=== PATIENT | female | born 1955 | race African-American/Black ===

== ENCOUNTER 2017-05-26 13:59 | Emergency (ER) | payer OTHER ==
[2017-05-26 15:15] LABS: BASOPHILS % (AUTO) 0.9 %; EOSINOPHILS # (AUTO) 0.1 10^3/uL (0.0-0.7); EOSINOPHILS % (AUTO) 3.4 %; HCT - HEMATOCRIT 31.1 % (37.0-47.0); HGB - HEMOGLOBIN 10.2 g/dL (12.0-16.0); LYMPHOCYTES # (AUTO) 0.4 10^3/uL (1.5-3.5); LYMPHOCYTES % (AUTO) 13.1 %; MEAN CORPUSCULAR HEMOGLOBIN 30.9 pg (27.0-31.0); MEAN CORPUSCULAR HGB CONC 32.7 g/dL (32.0-36.0); MEAN CORPUSCULAR VOLUME 94.6 fL (81.0-99.0); MEAN PLATELET VOLUME 10.7 fL (7.9-10.8); MONOCYTES # (AUTO) 0.3 10^3/uL (0.0-1.0); MONOCYTES % (AUTO) 10.1 %; NEUTROPHILS # (AUTO) 2.5 10^3/uL (1.5-6.6); NEUTROPHILS % (AUTO) 72.5 %; RED BLOOD COUNT 3.29 10^6/uL (4.20-5.40); RED CELL DISTRIBUTION WIDTH 18.6 % (12.0-15.0); UNCORRECTED WHITE BLOOD COUNT 3.4 x10^3/uL; WHITE BLOOD COUNT 3.4 x10^3/uL (4.8-10.8)
--- NOTE | 2017-05-26 15:20 | ED Physician Documentation ---
PD HPI DYSPNEA - Stated complaint Stated Complaint: DIFF BREATHING - Chief complaint Chief Complaint: Resp - History obtained from History obtained from: Patient, Family - History of Present Illness Timing - onset: How many days ago (several) Timing - duration: Days (several) Timing - details: Gradual onset Pain level max: 0 Pain level now: 0 Inciting event(s): URI Improved by: Rest Worsened by: Exertion Associated symptoms: Cough, Bilateral edema. No: Fever, Hemoptysis, Wheezing, Chest pain / discomfort, Palpitations, Diaphoresis, Unilateral edema Similar symptoms before: Diagnosis (CHF) Recently seen: Not recently seen Review of Systems Ten Systems: 10 systems reviewed and negative Constitutional: denies: Fever, Chills Nose: denies: Rhinorrhea / runny nose, Congestion Respiratory: reports: Cough GI: denies: Nausea, Vomiting, Diarrhea : denies: Dysuria Skin: denies: Rash Musculoskeletal: denies: Neck pain, Back pain Neurologic: denies: Headache PD PAST MEDICAL HISTORY - Past Medical History Past Medical History: Yes Cardiovascular: Congestive heart failure, Hypertension : Other (CKD, not on HD) - Present Medications Home Medications: Ambulatory Orders Medication Instructions Recorded Confirmed Acetaminophen 2 tab PO PRN PRN 05/26/17 05/26/17 Acetaminophen [Tylenol] 1 supp [place] PRN PRN 05/26/17 Albuterol 1 neb INH PRN PRN 05/26/17 05/26/17 Allopurinol 300 mg PO DAILY 05/26/17 05/26/17 Ascorbic Acid [Vitamin C] 500 mg PO DAILY 05/26/17 05/26/17 Azithromycin [Zithromax] 250 mg PO DAILY #4 tablet 05/26/17 Bumetanide [Bumex] 4 mg PO BID 05/26/17 05/26/17 Calcitriol [Rocaltrol] 1 cap PO DAILY 05/26/17 05/26/17 Calcium Carbonate [Tums (Calcium 1,000 mg PO PRN PRN 05/26/17 05/26/17 Carbonate 500mg)] Carvedilol 12.5 mg PO BID 05/26/17 05/26/17 Cholecalciferol (Vitamin D3) 1 cap PO DAILY 05/26/17 05/26/17 [Vitamin D3] Diclofenac Sodium [Voltaren] 1 applic TOP TID 05/26/17 05/26/17 FLUoxetine [PROzac] 20 mg PO DAILY 05/26/17 05/26/17 Ferrous Sulfate 325 mg PO DAILY PM 05/26/17 05/26/17 Fluticasone [Flonase] 1 sprays MARIELLE DAILY 05/26/17 05/26/17 Furosemide [Lasix] 40 mg PO DAILY #5 tablet 05/26/17 Glucagon,Human Recombinant 1 mg IJ PRN PRN 05/26/17 05/26/17 [Glucagon Emergency Kit] Isosorbide Mononitrate [Isosorbide 30 mg PO DAILY 05/26/17 05/26/17 Mononitrate ER] Lisinopril 1 tab PO BID 05/26/17 05/26/17 Melatonin 3 mg PO PRN PRN 05/26/17 05/26/17 Phenytoin [Dilantin] 400 mg PO DAILY PM 05/26/17 05/26/17 Pnv No.95/Ferrous Fum/Folic AC 1 tab PO DAILY 05/26/17 05/26/17 [ Multivitamin Tablet] Polyethylene Glycol 3350 [Miralax] 17 gm PO DAILY PRN 05/26/17 05/26/17 Potassium Chloride [K-Dur] 60 mg PO BID 05/26/17 05/26/17 Senna [Senokot] 1 tab PO PRN PRN 05/26/17 05/26/17 Simethicone [Gas Relief] 1 tab PO PRN PRN 05/26/17 05/26/17 hydrALAZINE [Apresoline] 25 mg PO TID 05/26/17 05/26/17 tiZANidine [Zanaflex] 2 mg PO PRN PRN 05/26/17 05/26/17 - Allergies Allergies/Adverse Reactions: Allergies Allergy/AdvReac Type Severity Reaction Status Date / Time amiodarone Allergy Edema Verified 05/26/17 14:22 amlodipine Allergy Edema Verified 05/26/17 14:22 - Living Situation Living Situation: reports: With family Living Arrangement: reports: At home - Social History Does the pt smoke?: No Does the pt have substance abuse?: No - Family History Family history: reports: Non contributory PD ED PE NORMAL - Vitals Vital signs reviewed: Yes - General General: Alert and oriented X 3, No acute distress - HEENT HEENT: Moist mucous membranes - Neck Neck: Supple, no meningeal sign - Cardiac Cardiac: RRR - Respiratory Respiratory: No respiratory distress, Other (mild rhonchi B) - Abdomen Abdomen: Soft, Non tender, Non distended - Derm Derm: Warm and dry - Extremities Extremities: Other (2+ BLE edema) - Neuro Neuro: Alert and oriented X 3 - Psych Psych: Normal mood, Normal affect Results - Vitals Vitals: Vital Signs - 24 hr 05/26/17 05/26/17 05/26/17 14:15 16:20 17:19 Temperature 36.9 C Heart Rate 81 75 71 Respiratory 95 H 18 17 Rate Blood Pressure 150/92 H 110/79 135/97 H O2 Saturation 95 97 99 Oxygen O2 Source Room air - EKG (time done) 1438 Rate: Rate (enter#) (67) Rhythm: Atrial fibrillation, Paced [place]: Normal Ischemia: Non specific changes - Labs Labs: Laboratory Tests 05/26/17 05/26/17 05/26/17 15:06 15:06 15:06 WBC 3.4 L RBC 3.29 L Hgb 10.2 L Hct 31.1 L MCV 94.6 MCH 30.9 MCHC 32.7 RDW 18.6 H Plt Count 85 L MPV 10.7 Neut # 2.5 Lymph # 0.4 L [place] # 0.3 Eos # 0.1 Baso # 0.0 Absolute Nucleated RBC 0.00 Nucleated RBC % 0.0 Sodium 137 Potassium 3.9 Chloride 100 L Carbon Dioxide 23 Anion Gap 14.0 H BUN 97 H* Creatinine 4.2 H Estimated GFR (MDRD) 13 L Glucose 129 H Calcium 8.7 Total Bilirubin 1.5 H AST 15 ALT 13 Alkaline Phosphatase 126 H B-Natriuretic Peptide 1130 H Total Protein 7.5 Albumin 4.0 Globulin 3.5 Albumin/Globulin Ratio 1.1 Lipase 29 - Rads (name of study) cxr Radiology: Prelim report reviewed, EMP read contemporaneously, See rad report ( Right basilar infiltrate with possible consolidation and small effusion. Cardiovascular fullness. Cannot exclude an element of congestive failure. ) PD MEDICAL DECISION MAKING - ED course Complexity details: reviewed results, re-evaluated patient, considered differential, d/w patient ED course: Patient is a 62-year-old female who presents to the emergency department with what appears to be congestive heart failure and possible complicating pneumonia. No hypoxia. No fever. Given Lasix here and is diuresing well. Will place on Lasix at home. We will also place on azithromycin. She is very well-appearing, nontoxic. Family and patient are comfortable going home at this time and will return if she worsens. Patient and family counseled regarding signs and symptoms for which I believe and urgent re-evaluation would be necessary. Patient with good understanding of and agreement to plan and is comfortable going home at this time This document was made in part using voice recognition software. While efforts are made to proofread this document, sound alike and grammatical errors may occur. Departure - Departure Disposition: Home, Self Care Clinical Impression: CHF (congestive heart failure) Qualifiers: Congestive heart failure type: unspecified congestive heart failure type Congestive heart failure chronicity: acute on chronic Qualified Code(s): I50.9 - Heart failure, unspecified Pneumonia Qualifiers: Pneumonia type: due to unspecified organism Laterality: right Lung location: lower lobe of lung Qualified Code(s): J18.1 - Lobar pneumonia, unspecified organism Condition: Good Instructions: ED CHF General, ED Pneumonia Adult Follow-Up: Provider,Other [Primary Care Provider] - Within 1 week Prescriptions: Azithromycin [Zithromax] 250 mg PO DAILY #4 tablet Furosemide [Lasix] 40 mg PO DAILY #5 tablet Comments: You should start to feel better in the next 2-3 days. Return sooner if you fail to improve or worsen. Discharge Date/Time: 05/26/17 17:45
[2017-05-26 15:34] LABS: ALBUMIN/GLOBULIN RATIO 1.1 (1.0-2.2); BILIRUBIN,TOTAL 1.5 mg/dL (0.2-1.0); CALCIUM 8.7 mg/dL (8.5-10.3); CREATININE 4.2 mg/dL (0.4-1.0); POTASSIUM 3.9 mmol/L (3.5-5.0); TOTAL PROTEIN 7.5 g/dL (6.7-8.2)
--- NOTE | 2017-05-26 15:41 | XRAY Preliminary Report ---
Exam: XR CHEST 2 VIEW PA/LAT IMPRESSION: 1. Right basilar infiltrate with possible consolidation and small effusion. 2. Cardiovascular fullness. Cannot exclude an element of congestive failure. [facility] SITE ID: [id number]
--- NOTE | 2017-05-26 15:43 | XRAY Report ---
EXAM: CHEST RADIOGRAPHY EXAM DATE: 05/26/2017 03:34 PM. CLINICAL HISTORY: Cough. COMPARISON: None. TECHNIQUE: 2 views. FINDINGS: Lungs/Pleura: Prominent infiltration in right lung base with possible consolidation. Small right effu maeve. Otherwise clear. No pneumothorax. Mediastinum: Moderate to marked cardiomegaly. Mild diffuse vascular fullness. Other: Permanent pacemaker on the left with intact leads. Status post median sternotomy. Degenerative changes. IMPRESSION: 1. Right basilar infiltrate with possible consolidation and small effusion. 2. Cardiovascular fullness. Cannot exclude an element of congestive failure. [facility] Referring Provider Line: [phone] SITE ID: [id number]
[2017-05-26] MEDS ORDERED: FUROSEMIDE 40 MG/4 ML VIAL IVP STA (15:46)
[2017-05-26] MEDS ORDERED: FUROSEMIDE 40 MG/4 ML VIAL ONE (16:23)
[2017-05-26] MEDS ORDERED: AZITHROMYCIN 250 MG TABLET PO STA (17:17)
[2017-05-26 17:20] VITALS: BP 135/97
[2017-05-26] MEDS ORDERED: AZITHROMYCIN 250 MG TABLET PO ONE (17:46)
== END 2017-05-26 17:45 | disposition home or self-care (01) ==
LOC: ED 13:59
DX: I13.0 Hypertensive heart and chronic kidney disease with heart failure and stage 1 through stage 4 chronic kidney disease, or unspecified chronic kidney disease (principal); N18.9 Chronic kidney disease, unspecified; I50.9 Heart failure, unspecified; J18.9 Pneumonia, unspecified organism; I48.91 Unspecified atrial fibrillation
CPT/HCPCS: 36415; 71020; 80053; 83690; 83880; 85025; 93005; 96374; 99283; 99284; A9270

== ENCOUNTER 2017-05-29 00:24 | Inpatient (IN) | payer OTHER ==
[2017-05-29 01:04] LABS: BASOPHILS % (AUTO) 0.8 %; EOSINOPHILS # (AUTO) 0.1 10^3/uL (0.0-0.7); EOSINOPHILS % (AUTO) 3.7 %; HCT - HEMATOCRIT 29.8 % (37.0-47.0); HGB - HEMOGLOBIN 9.8 g/dL (12.0-16.0); LYMPHOCYTES # (AUTO) 0.6 10^3/uL (1.5-3.5); MEAN CORPUSCULAR HEMOGLOBIN 30.9 pg (27.0-31.0); MEAN CORPUSCULAR HGB CONC 32.9 g/dL (32.0-36.0); MEAN CORPUSCULAR VOLUME 93.8 fL (81.0-99.0); MEAN PLATELET VOLUME 11.2 fL (7.9-10.8); MONOCYTES # (AUTO) 0.4 10^3/uL (0.0-1.0); MONOCYTES % (AUTO) 11.5 %; NEUTROPHILS # (AUTO) 2.4 10^3/uL (1.5-6.6); NUCLEATED RED BLOOD CELLS AUTO 0.1 /100WBC; RED BLOOD COUNT 3.18 10^6/uL (4.20-5.40); RED CELL DISTRIBUTION WIDTH 19.5 % (12.0-15.0); UNCORRECTED WHITE BLOOD COUNT 3.6 x10^3/uL; WHITE BLOOD COUNT 3.6 x10^3/uL (4.8-10.8)
[2017-05-29 01:32] LABS: INR 1.2 (0.8-1.2); PT - PROTHROMBIN TIME 13.7 secs (9.9-12.6)
[2017-05-29 01:40] LABS: ALBUMIN/GLOBULIN RATIO 1.1 (1.0-2.2); BILIRUBIN,TOTAL 1.3 mg/dL (0.2-1.0); CREATININE 4.4 mg/dL (0.4-1.0); POTASSIUM 4.6 mmol/L (3.5-5.0); TOTAL PROTEIN 7.5 g/dL (6.7-8.2)
[2017-05-29] MEDS ORDERED: BUMETANIDE 1 MG/4 ML VIAL IVP STA (02:15)
--- NOTE | 2017-05-29 02:23 | XRAY Preliminary Report ---
Exam: XR CHEST 2 VIEW PA/LAT IMPRESSION: 1. Stable abnormal appearance of the chest. 2. There is a background of mild CHF. 3. Medium-sized right basilar airspace disease as well as medium size right-sided pleural effusion. [facility] SITE ID: [id number]
--- NOTE | 2017-05-29 02:45 | XRAY Report ---
EXAM: CHEST RADIOGRAPHY EXAM DATE: 05/29/2017 02:00 AM. CLINICAL HISTORY: Shortness of breath, pneumonia. COMPARISON: 05/26/2017. TECHNIQUE: 2 views. FINDINGS: Lungs/Pleura: There is medium-sized right basilar consolidation. Medium-sized right-sided pleural eff usion. Accounting for differences in technique, no significant change from the prior exam. Mediastinum: Moderate enlargement of the cardiac silhouette and pulmonary vascular congestion. Other: Prior median sternotomy. Left subclavian pacemaker device tips at the right atrium and right v entricle apex. IMPRESSION: 1. Stable abnormal appearance of the chest. 2. There is a background of mild CHF. 3. Medium-sized right basilar airspace disease as well as medium size right-sided pleural effusion. [facility] Referring Provider Line: [phone] SITE ID: [id number]
--- NOTE | 2017-05-29 02:48 | ED Physician Documentation ---
PD HPI DYSPNEA - Stated complaint Stated Complaint: SHORTNESS OF BREATH - Chief complaint Chief Complaint: Ext Problem - History obtained from History obtained from: Patient, Family, EMS - History of Present Illness Timing - onset: How many days ago (5) Timing - details: Gradual onset, Still present Improved by: O2, Lasix, Sitting up Worsened by: Exertion, Laying flat Associated symptoms: Cough, Wheezing, Bilateral edema Similar symptoms before: Work up / diagnostics, Treatment, Follow up Recently seen: Emergency Dept - Additional information Additional information: Patient is a 62 year old female with a history of diabetes, htn, ckd who is presenting to the emergency department for shortness of breath. patient was seen in the emergency department 3 days prior. At that time she was started on antibiotics and lasix. Patient states that she felt ok at discharge but has become progressively worse so she came back for further care. Review of Systems Constitutional: reports: Myalgias. denies: Fever, Chills Eyes: denies: Decreased vision, Photophobia Ears: denies: Ear pain, Drainage/discharge Nose: reports: Congestion Throat: denies: Sore throat Cardiac: reports: Pedal edema Respiratory: reports: Dyspnea, Cough, Wheezing GI: denies: Nausea, Vomiting : reports: Frequency Skin: reports: Lesions Musculoskeletal: reports: Extremity pain, Extremity swelling, Joint swelling Neurologic: reports: Generalized weakness. 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 : Other - Past Surgical History Past Surgical History: Yes /PROCESS CONTROL OPERATOR: Other Cardiovascular: Valve replacement Neuro: Other - Present Medications Home Medications: Ambulatory Orders Medication Instructions Recorded Confirmed Acetaminophen 2 tab PO PRN PRN 05/26/17 05/26/17 Acetaminophen [Tylenol] 1 supp [place] PRN PRN 05/26/17 Albuterol 1 neb INH PRN PRN 05/26/17 05/26/17 Allopurinol 300 mg PO DAILY 05/26/17 05/26/17 Ascorbic Acid [Vitamin C] 500 mg PO DAILY 05/26/17 05/26/17 Azithromycin [Zithromax] 250 mg PO DAILY #4 tablet 05/26/17 Bumetanide [Bumex] 4 mg PO BID 05/26/17 05/26/17 Calcitriol [Rocaltrol] 1 cap PO DAILY 05/26/17 05/26/17 Calcium Carbonate [Tums (Calcium 1,000 mg PO PRN PRN 05/26/17 05/26/17 Carbonate 500mg)] Carvedilol 12.5 mg PO BID 05/26/17 05/26/17 Cholecalciferol (Vitamin D3) 1 cap PO DAILY 05/26/17 05/26/17 [Vitamin D3] Diclofenac Sodium [Voltaren] 1 applic TOP TID 05/26/17 05/26/17 FLUoxetine [PROzac] 20 mg PO DAILY 05/26/17 05/26/17 Ferrous Sulfate 325 mg PO DAILY PM 05/26/17 05/26/17 Fluticasone [Flonase] 1 sprays MARIELLE DAILY 05/26/17 05/26/17 Furosemide [Lasix] 40 mg PO DAILY #5 tablet 05/26/17 Glucagon,Human Recombinant 1 mg IJ PRN PRN 05/26/17 05/26/17 [Glucagon Emergency Kit] Isosorbide Mononitrate [Isosorbide 30 mg PO DAILY 05/26/17 05/26/17 Mononitrate ER] Lisinopril 1 tab PO BID 05/26/17 05/26/17 Melatonin 3 mg PO PRN PRN 05/26/17 05/26/17 Phenytoin [Dilantin] 400 mg PO DAILY PM 05/26/17 05/26/17 Pnv No.95/Ferrous Fum/Folic AC 1 tab PO DAILY 05/26/17 05/26/17 [ Multivitamin Tablet] Polyethylene Glycol 3350 [Miralax] 17 gm PO DAILY PRN 05/26/17 05/26/17 Potassium Chloride [K-Dur] 60 mg PO BID 05/26/17 05/26/17 Senna [Senokot] 1 tab PO PRN PRN 05/26/17 05/26/17 Simethicone [Gas Relief] 1 tab PO PRN PRN 05/26/17 05/26/17 hydrALAZINE [Apresoline] 25 mg PO TID 05/26/17 05/26/17 tiZANidine [Zanaflex] 2 mg PO PRN PRN 05/26/17 05/26/17 - Allergies Allergies/Adverse Reactions: Allergies Allergy/AdvReac Type Severity Reaction Status Date / Time amiodarone Allergy Edema Verified 05/29/17 00:44 amlodipine Allergy Edema Verified 05/29/17 00:44 - Social History Does the pt smoke?: No Smoking Status: Never smoker Does the pt drink ETOH?: No Does the pt have substance abuse?: No - Immunizations Immunizations are current?: Yes - POLST Patient has POLST: No PD ED PE EXPANDED - General General: Alert, In distress, Other (anasarca) - HEENT HEENT: Dry mucous membranes - Neck Neck: JVD present - Cardiac Cardiac: Irregularly irregular - Respiratory Respiratory: Distress, Labored, Accessory mm use, Wheezing, Right upper lobe, Right middle lobe, Right lower lobe, Left upper lobe, Left lower lobe - Abdomen Abdomen: Other (pitting edema) - Derm Derm: Other (pitting edema with blisters) - Extremities Extremities: Pedal edema bilateral (+4 pitting edema diffusely) Results - Vitals Vitals: Vital Signs - 24 hr 05/29/17 05/29/17 05/29/17 00:30 02:08 02:46 Temperature 36.6 C 36.3 C L Heart Rate 85 80 75 Respiratory 24 20 18 Rate Blood Pressure 181/85 H 157/96 H 161/107 H O2 Saturation 100 100 100 Oxygen O2 Source Room air Oxygen Flow Rate 2 - EKG (time done) 0103 Rate: Rate (enter#) (81) Rhythm: Atrial fibrillation QRS: Low voltage Ischemia: T wave inversion Compare to prior EKG: Unchanged from prior EKG - Labs Labs: Laboratory Tests 05/29/17 05/29/17 05/29/17 00:57 00:57 00:57 WBC 3.6 L RBC 3.18 L Hgb 9.8 L Hct 29.8 L MCV 93.8 MCH 30.9 MCHC 32.9 RDW 19.5 H Plt Count 134 MPV 11.2 H Neut # 2.4 Lymph # 0.6 L [place] # 0.4 Eos # 0.1 Baso # 0.0 Absolute Nucleated RBC 0.00 Nucleated RBC % 0.1 PT INR Sodium 137 Potassium 4.6 Chloride 97 L Carbon Dioxide 25 Anion Gap 15.0 H BUN 89 H* Creatinine 4.4 H Estimated GFR (MDRD) 12 L Glucose 120 H Lactic Acid Calcium 9.0 Total Bilirubin 1.3 H AST 18 ALT 15 Alkaline Phosphatase 124 H Troponin I 0.04 B-Natriuretic Peptide Total Protein 7.5 Albumin 3.9 Globulin 3.6 Albumin/Globulin Ratio 1.1 Lipase 34 05/29/17 05/29/17 05/29/17 00:57 01:10 01:10 WBC RBC Hgb Hct MCV MCH MCHC RDW Plt Count MPV Neut # Lymph # [place] # Eos # Baso # Absolute Nucleated RBC Nucleated RBC % PT 13.7 H INR 1.2 Sodium Potassium Chloride Carbon Dioxide Anion Gap BUN Creatinine Estimated GFR (MDRD) Glucose Lactic Acid 0.8 Calcium Total Bilirubin AST ALT Alkaline Phosphatase Troponin I B-Natriuretic Peptide 1030 H Total Protein Albumin Globulin Albumin/Globulin Ratio Lipase - Rads (name of study) chest x-ray Radiology: Final report received (pulmonary vascular congestion) PD MEDICAL DECISION MAKING - ED course Complexity details: reviewed old records, reviewed results, re-evaluated patient , considered differential, d/w patient, d/w family, d/w home energy consultant ED course: Patient was seen and examined at bedside. Patient was placed on a monitor. ekg was performed. labs were drawn and chest x-ray was performed. Patient stated that lasix wasnt working and was treated with bumex. Patient's labs and ekg were consistent with heart failure. hospitalist was contacted and came and evaluated the patient. Patient was admitted under his service for further evaluation and care. Departure - Departure Disposition: [facility] DC/Xfer Clinical Impression: Renal failure CHF (congestive heart failure) Qualifiers: Congestive heart failure type: unspecified congestive heart failure type Condition: Stable Discharge Date/Time: 05/29/17 04:31
[2017-05-29] MEDS ORDERED: BUMETANIDE 1 MG/4 ML VIAL ONE (02:50)
[2017-05-29] MEDS ORDERED: CALCIUM CARBONATE CHEW 500 MG TABLET PO PRN (03:09)
[2017-05-29] MEDS ORDERED: SODIUM CHLORIDE FLUSH 0.9% 10 ML SYRINGE IVP PRN (03:15)
[2017-05-29] MEDS ORDERED: PROMETHAZINE 25 MG/1 ML VIAL IM PRN (03:21)
[2017-05-29] MEDS ORDERED: HYDROcod/ACETAM 5/325 MG TABLET PO PRN (03:21)
[2017-05-29] MEDS ORDERED: PROCHLORPERAZINE 10 MG/2 ML VIAL IVP PRN (03:21)
[2017-05-29] MEDS ORDERED: HYDROcod/ACETAM 10 MG/325 MG TABLET PO PRN (03:21)
[2017-05-29] MEDS ORDERED: ACETAMINOPHEN 325 MG TABLET PO PRN (03:21)
[2017-05-29] MEDS ORDERED: ZOLPIDEM 5 MG TABLET PO PRN (03:21)
[2017-05-29] MEDS ORDERED: ONDANSETRON 4 MG/2 ML VIAL IVP PRN (03:21)
--- NOTE | 2017-05-29 04:09 | HISTORY & PHYSICAL EXAMINATION ---
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 The patient states that all of her symptoms started about 2 weeks ago. She states that at that time she had a sore throat and was having cold-like symptoms. She states that she began having worsening lower extremity swelling which lasted for a couple of days and then symptoms began to improve. She states that symptoms then returned after a few days and then just over the last few days became significantly worse. She states that she had severe shortness of breath with just minimal exertion. She states that she has had severely increased swelling both in her lower extremities and up into her abdominal wall. The patient also states that she has been feeling weak overall. She admits to orthopnea she is unable to lie flat and has to sit up even to sleep. She denies any fevers or chills but does admit to cough. The patient states that she has gained about 40 pounds in the last 4 months. The patient did come into the emergency department 3 days ago and at that time was found to have a pneumonia and fluid overload thought to be secondary to her CKD and CHF. The patient was prescribed Lasix and azithromycin and discharged home. The patient had worsening of her symptoms over the course of the last 2 days and returned to the emergency department. The patient denies any headaches, blurred vision, runny nose, difficulty swallowing, nasal congestion, neck pain, chest pain, abdominal pain, nausea, vomiting, diarrhea, constipation, urinary urgency, urinary frequency, dysuria, muscle aches, changes in her appetite, or any new focal neurologic deficits. On presentation to the emergency department the patient was afebrile but she was quite tachypneic and did have some mild conversational dyspnea. The patient was also hypertensive but the remainder of her vital signs were normal and she was saturating well on room air. The patient underwent routine lab work which revealed a creatinine of 4.4 with a BUN of 89 this was improved from a day prior. The patient stated that she still is making urine. The patient's BNP was elevated at 1030 which is improved from 1130 just 3 days earlier. The patient's chest x-ray revealed mild CHF with medium-sized right basilar airspace disease and a medium size right pleural effusion. On exam the patient was very tachypneic had anasarca and significant crackles on examination. The patient was admitted for fluid overload secondary to CHF exacerbation and chronic kidney disease. History - Past Medical History Cardiovascular: reports: Congestive heart failure, Hypertension, Atrial fibrillation, Valve disorder (Mitral regurgitation status post repair) Respiratory: reports: Other Neuro: reports: CVA (Residual right-sided weakness), Peripheral neuropathy, Other (Cerebrospinal fluid leak) Endocrine/Autoimmune: reports: Type 2 diabetes, Other (Parathyroidectomy) GI: reports: None MANAGER PATIENT: reports: Other : reports: Renal insuffiency (CKD stage V), Other Psych: reports: Depression Musculoskeletal: reports: Osteoarthritis, Gout - Past Surgical History /MANAGER PATIENT: reports: Other Cardiovascular: reports: Valve replacement Neuro: reports: Craniotomy, Other - Family & Social History Family History: Mother: , CAD, Hypertension (Grandmother and grandfather both had hypertension), Father: , CAD, Hypertension, Other family: Diabetes, Type 2 (Grandmother with diabetes), Hypertension Living arrangement: At home Living Situation: With caregiver(s) Social History Notes: The patient was born in [place] but grew up in [place] [facility]. The patient had no biological children and has never been . She does have 2 adopted children who live on [facility]. The patient's DPOA is her aunt. She lives in [place] and had a job in [employer] from which she is retired. She has 2 LATCHER's who provide support in the home. The patient has never smoked, she does not drink alcohol and she denies any illicit drug use. - Substance History Use: Uses substance without health or social issues: NONE Abuse: Recurrent use of substance despite neg consequences: NONE Dependence: Experiences withdrawal or developed tolerances: NONE - POLST Patient has POLST: No POLST Status: Full Code Meds/Allgy - Home Medications Home Medications: Ambulatory Orders Medication Instructions Recorded Confirmed Acetaminophen 2 tab PO PRN PRN 05/26/17 05/26/17 Acetaminophen [Tylenol] 1 supp AK PRN PRN 05/26/17 Albuterol 1 neb INH PRN PRN 05/26/17 05/26/17 Allopurinol 300 mg PO DAILY 05/26/17 05/26/17 Ascorbic Acid [Vitamin C] 500 mg PO DAILY 05/26/17 05/26/17 Azithromycin [Zithromax] 250 mg PO DAILY #4 tablet 05/26/17 Bumetanide [Bumex] 4 mg PO BID 05/26/17 05/26/17 Calcitriol [Rocaltrol] 1 cap PO DAILY 05/26/17 05/26/17 Calcium Carbonate [Tums (Calcium 1,000 mg PO PRN PRN 05/26/17 05/26/17 Carbonate 500mg)] Carvedilol 12.5 mg PO BID 05/26/17 05/26/17 Cholecalciferol (Vitamin D3) 1 cap PO DAILY 05/26/17 05/26/17 [Vitamin D3] Diclofenac Sodium [Voltaren] 1 applic TOP TID 05/26/17 05/26/17 FLUoxetine [PROzac] 20 mg PO DAILY 05/26/17 05/26/17 Ferrous Sulfate 325 mg PO DAILY PM 05/26/17 05/26/17 Fluticasone [Flonase] 1 sprays MARIELLE DAILY 05/26/17 05/26/17 Furosemide [Lasix] 40 mg PO DAILY #5 tablet 05/26/17 Glucagon,Human Recombinant 1 mg IJ PRN PRN 05/26/17 05/26/17 [Glucagon Emergency Kit] Isosorbide Mononitrate [Isosorbide 30 mg PO DAILY 05/26/17 05/26/17 Mononitrate ER] Lisinopril 1 tab PO BID 05/26/17 05/26/17 Melatonin 3 mg PO PRN PRN 05/26/17 05/26/17 Phenytoin [Dilantin] 400 mg PO DAILY PM 05/26/17 05/26/17 Pnv No.95/Ferrous Fum/Folic AC 1 tab PO DAILY 05/26/17 05/26/17 [ Multivitamin Tablet] Polyethylene Glycol 3350 [Miralax] 17 gm PO DAILY PRN 05/26/17 05/26/17 Potassium Chloride [K-Dur] 60 mg PO BID 05/26/17 05/26/17 Senna [Senokot] 1 tab PO PRN PRN 05/26/17 05/26/17 Simethicone [Gas Relief] 1 tab PO PRN PRN 05/26/17 05/26/17 hydrALAZINE [Apresoline] 25 mg PO TID 05/26/17 05/26/17 tiZANidine [Zanaflex] 2 mg PO PRN PRN 05/26/17 05/26/17 - Allergies Allergies/Adverse Reactions: Allergies Allergy/AdvReac Type Severity Reaction Status Date / Time amiodarone Allergy Edema Verified 05/29/17 00:44 amlodipine Allergy Edema Verified 05/29/17 00:44 Review of Systems - Other Findings Other Findings: A comprehensive review of systems was performed the pertinent positives and negatives are stated above in the HPI and the remainder of the review of systems is negative. Exam - Vital Signs Reviewed Vital Signs: Yes - Physical Exam General Appearance: positive: Alert, Moderate distress (Patient is very tachypneic and short of breath. She is in some moderate respiratory distress.) , Other (Patient has anasarca) Eyes Bilateral: positive: Normal inspection, PERRL, EOMI, No lid inflammation, Conjunctivae nml, No scleral icterus ENT: positive: ENT inspection nml, Pharynx nml, No signs of dehydration. negative: Purulent nasal drainage, Pharyngeal erythema, Oral lesions Neck: positive: Nml inspection, Thyroid nml, Trachea midline, Other (Patient has elevated JVD). negative: Thyromegaly, Lymphadenopathy (R), Lymphadenopathy (L), Stiff neck, Brudzinski's sign, Carotid bruit, Tracheal deviation Respiratory: positive: Rales (Patient has crackles up two thirds of the lungs bilaterally. She is tachypneic and in respiratory distress) Cardiovascular: positive: No murmur, No gallop, Irregularly irregular Peripheral Pulses: positive: 2+ Abdomen: positive: Non-tender, Nml bowel sounds, Other (Patient has abdominal wall edema). negative: Guarding, Rebound, Hepatomegaly Back: positive: Nml inspection. negative: CVA tenderness (R), CVA tenderness (L ) Skin: positive: No rash, Dry, Other (Patient has blistering and skin breakdown in her bilateral lower extremities above the knees). negative: Cyanosis, Diaphoresis, Pallor Extremities: positive: Non-tender, Full ROM, Nml appearance, Pedal edema ( Bilateral 4+ pitting edema throughout the bilateral lower extremities and up into the abdominal wall. Patient has anasarca.) Neurologic/Psychiatric: positive: Oriented x3, CN's nml (2-12), Motor nml, Sensation nml, Mood/affect nml Conclusion/Plan - Problem List (1) Pulmonary edema Conclusion/Plan: Patient presented with increasing shortness of breath and was tachypneic and in respiratory distress on presentation. The patient also is having orthopnea with increasing edema. The patient has history of CKD stage V as well as CHF. It appears that the patient likely is having a combination of worsening CKD leading to fluid retention and CHF leading to pulmonary edema. The patient was treated in the emergency department 3 days earlier with Lasix and sent home with Lasix but has not had improvement in her symptoms in fact symptoms have worsened over the last 3 days. Plan: Patient will be treated with IV Lasix 100 mg 3 times daily given her CKD stage V she will require high doses of Lasix and we will hope that she is able to diurese appropriately. If patient does not have appropriate diuresis and kidney function continues to decline we will need to transfer the patient for nephrology consultation and urgent dialysis. 2 L fluid restriction Strict I's and O's Daily weights Solomon catheter Qualifiers: Chronicity: acute Qualified Code(s): J81.0 - Acute pulmonary edema (2) Anasarca Conclusion/Plan: The patient has severe anasarca with edema up both lower extremities that is 4+ . She also has abdominal wall edema and edema in her upper extremities. This anasarca is likely secondary to her CKD stage V. The patient has put on over 40 pounds in the last 4 months. This appears all to be from edema. Plan: We will attempt to diurese the patient with high doses of Lasix IV and hope she is able to make enough urine to decrease her anasarca and the discomfort that she is up 6. She is experiencing due to the anasarca. (3) CKD (chronic kidney disease) stage 5, GFR less than 15 ml/min Conclusion/Plan: The patient has CKD stage V and has been seen outpatient by her naval marine engineer Dr. Wild Justice at the [facility] in [place]. The patient has been prepped for dialysis and is supposed to get a fistula placed within the next few months. Over the last several months the patient has developed worsening anasarca and now has pulmonary edema. The patient otherwise does not have any indications for dialysis at this time as she has normal electrolytes and does not appear to be uremic. The patient continues to make good urine. Plan: We will attempt to diurese the patient with high doses of Lasix IV in hopes of improving her pulmonary edema and anasarca. If the patient's urine output declines or the patient's creatinine worsens or she has any electrolyte abnormalities the patient will need urgent transfer to a center with nephrology for dialysis. Patient also appears to have anemia of chronic disease secondary to her CKD We will monitor the patient's phosphorus and electrolytes We will avoid nephrotoxic agents (4) CHF (congestive heart failure) Conclusion/Plan: The patient states that she has a history of CHF however we do not have an echo in our system to confirm this. The patient does present with pulmonary edema and shortness of air with JVD and crackles on examination. Patient also has an elevated BNP. The patient appears to be in a CHF exacerbation however this may be in conjunction with fluid overload due to CKD stage V and poor diuresis. Plan: Echocardiogram IV Lasix 100 mg 3 times daily Potassium replacement Daily weights Strict I's and O's Fluid restriction of 2 L If patient has systolic dysfunction we will need to ensure that she is on optimal medications. Telemetry monitoring Qualifiers: Congestive heart failure type: unspecified congestive heart failure type (5) CAP (community acquired pneumonia) Conclusion/Plan: The patient has been having worsening shortness of air and has also been coughing. She does not have any fevers or chills. The patient's chest x-ray however does show a medium-sized right basilar airspace disease with a right sided pleural effusion. Although the patient's symptoms appear mainly to be due to her fluid overload I am still suspicious that she may have pneumonia given her comorbidities and therefore we will treat her for community-acquired pneumonia. Plan: Patient will be placed on ceftriaxone and azithromycin IV 7 days for treatment of pneumonia. Patient will be given supplemental oxygen as needed. Qualifiers: Laterality: right Lung location: lower lobe of lung Qualified Code(s): J18.1 - Lobar pneumonia, unspecified organism (6) Hypertension Conclusion/Plan: The patient has a history of hypertension. The patient's blood pressure is poorly controlled on presentation. Patient's blood pressure may be poorly controlled secondary to fluid overload due to CKD stage V and CHF. Plan: We will continue the patient's home antihypertensive medications for now We will give her IV Lasix which should help to improve her blood pressure. Qualifiers: Hypertension type: essential hypertension Qualified Code(s): I10 - Essential (primary) hypertension (7) Atrial fibrillation Conclusion/Plan: Patient has chronic atrial fibrillation and currently is rate controlled. According to the patient she was previously on anticoagulation but was stopped for some reason that she does not know. Given that she patient's recent stroke her chads 2 score is 5 and she should be on anticoagulation. Plan: Patient will be continued on Coreg for rate control The patient will need discussion as an outpatient for anticoagulation we will not start her anticoagulation while she is hospitalized here. Telemetry monitoring Qualifiers: Atrial fibrillation type: chronic Qualified Code(s): I48.2 - Chronic atrial fibrillation (8) Diabetes Conclusion/Plan: Patient has history of type 2 diabetes but after her stroke 1 year ago she lost a lot of weight and was taken off of insulin. On presentation today her blood sugars are controlled. The patient states that she is diet controlled at home. Next line Plan: Check hemoglobin A1c Place patient on sliding scale insulin Place patient on diabetic diet Monitor blood glucose before meals at bedtime Qualifiers: Diabetes mellitus type: type 2 (9) Prophylactic use of low molecular weight heparin for venous thromboembolism Conclusion/Plan: Patient will be placed on Lovenox for DVT prophylaxis while she is hospitalized. - Lab Results Lab results reviewed: Yes Fish Bones: 05/29/17 00:57 05/29/17 00:57 Other Lab Results: Laboratory Results WBC 3.6 x10^3/uL (4.8-10.8) L 05/29/17 00:57 RBC 3.18 10^6/uL (4.20-5.40) L 05/29/17 00:57 Hgb 9.8 g/dL (12.0-16.0) L 05/29/17 00:57 Hct 29.8 % (37.0-47.0) L 05/29/17 00:57 MCV 93.8 fL (81.0-99.0) 05/29/17 00:57 MCH 30.9 pg (27.0-31.0) 05/29/17 00:57 MCHC 32.9 g/dL (32.0-36.0) 05/29/17 00:57 RDW 19.5 % (12.0-15.0) H 05/29/17 00:57 Plt Count 134 10^3/uL (130-450) 05/29/17 00:57 MPV 11.2 fL (7.9-10.8) H 05/29/17 00:57 Neut # 2.4 10^3/uL (1.5-6.6) 05/29/17 00:57 Lymph # 0.6 10^3/uL (1.5-3.5) L 05/29/17 00:57 [place] # 0.4 10^3/uL (0.0-1.0) 05/29/17 00:57 Eos # 0.1 10^3/uL (0.0-0.7) 05/29/17 00:57 Baso # 0.0 10^3/uL (0.0-0.1) 05/29/17 00:57 Absolute Nucleated RBC 0.00 x10^3/uL 05/29/17 00:57 Nucleated RBC % 0.1 /100WBC 05/29/17 00:57 PT 13.7 secs (9.9-12.6) H 05/29/17 01:10 INR 1.2 (0.8-1.2) 05/29/17 01:10 Sodium 137 mmol/L (135-145) 05/29/17 00:57 Potassium 4.6 mmol/L (3.5-5.0) 05/29/17 00:57 Chloride 97 mmol/L (101-111) L 05/29/17 00:57 Carbon Dioxide 25 mmol/L (21-32) 05/29/17 00:57 Anion Gap 15.0 (6-13) H 05/29/17 00:57 BUN 89 mg/dL (6-20) H* 05/29/17 00:57 Creatinine 4.4 mg/dL (0.4-1.0) H 05/29/17 00:57 Estimated GFR (MDRD) 12 (>89) L 05/29/17 00:57 Glucose 120 mg/dL (70-100) H 05/29/17 00:57 POC Whole Bld Glucose 110 mg/dL (70 - 100) H 05/29/17 04:20 Lactic Acid 0.8 mmol/L (0.5-2.2) 05/29/17 00:57 Calcium 9.0 mg/dL (8.5-10.3) 05/29/17 00:57 Total Bilirubin 1.3 mg/dL (0.2-1.0) H 05/29/17 00:57 AST 18 IU/L (10-42) 05/29/17 00:57 ALT 15 IU/L (10-60) 05/29/17 00:57 Alkaline Phosphatase 124 IU/L (42-121) H 05/29/17 00:57 Troponin I 0.04 ng/mL (<0.49) 05/29/17 00:57 B-Natriuretic Peptide 1030 pg/mL (5-100) H 05/29/17 01:10 Total Protein 7.5 g/dL (6.7-8.2) 05/29/17 00:57 Albumin 3.9 g/dL (3.2-5.5) 05/29/17 00:57 Globulin 3.6 g/dL (2.1-4.2) 05/29/17 00:57 Albumin/Globulin Ratio 1.1 (1.0-2.2) 05/29/17 00:57 Lipase 34 U/L (22-51) 05/29/17 00:57 - Diagnostic Imaging Results Diagnostic Imaging Results: positive: Final report reviewed Diagnostic Imaging Results Comments: Chest x-ray Impression: 1. Stable abnormal appearance of the chest 2. There is a background of mild CHF 3. Medium-sized right basilar airspace disease as well as a medium-sized right sided pleural effusion. Issues/Core Measures - Anticipated LOS Anticipated Stay Length: 2 or more midnights - DVT/VTE - Prophylaxis VTE/DVT Prophylaxis med ordered at admit?: Yes
[2017-05-29] MEDS ORDERED: IPRATROPIUM/ALBUTEROL 3 ML NEB INH PRN (04:37)
[2017-05-29] MEDS ORDERED: cefTRIAXone 2 GM in SODIUM CHLORIDE 0.9% MINIBAG 100 ML IV SCH (06:00)
[2017-05-29] MEDS ORDERED: DICLOFENAC SODIUM TOP SCH (06:00)
[2017-05-29] MEDS: FUROSEMIDE 40 MG/4 ML VIAL IVP SCH ×2 (06:04→14:19)
[2017-05-29] MEDS: hydrALAZINE 25 MG TABLET PO SCH ×2 (06:04→14:14)
[2017-05-29] MEDS: SODIUM CHLORIDE FLUSH 0.9% 10 ML SYRINGE IVP SCH ×4 (06:05→14:20)
[2017-05-29 06:08] LABS: BASOPHILS # (AUTO) 0.1 10^3/uL (0.0-0.1); BASOPHILS % (AUTO) 1.4 %; EOSINOPHILS # (AUTO) 0.2 10^3/uL (0.0-0.7); HCT - HEMATOCRIT 31.7 % (37.0-47.0); HGB - HEMOGLOBIN 10.3 g/dL (12.0-16.0); LYMPHOCYTES # (AUTO) 0.6 10^3/uL (1.5-3.5); MEAN CORPUSCULAR HEMOGLOBIN 30.8 pg (27.0-31.0); MEAN CORPUSCULAR HGB CONC 32.5 g/dL (32.0-36.0); MEAN CORPUSCULAR VOLUME 94.9 fL (81.0-99.0); MEAN PLATELET VOLUME 10.2 fL (7.9-10.8); MONOCYTES # (AUTO) 0.4 10^3/uL (0.0-1.0); MONOCYTES % (AUTO) 11.7 %; NEUTROPHILS # (AUTO) 2.4 10^3/uL (1.5-6.6); NEUTROPHILS % (AUTO) 64.9 %; RED BLOOD COUNT 3.34 10^6/uL (4.20-5.40); RED CELL DISTRIBUTION WIDTH 19.2 % (12.0-15.0); UNCORRECTED WHITE BLOOD COUNT 3.7 x10^3/uL; WHITE BLOOD COUNT 3.7 x10^3/uL (4.8-10.8)
[2017-05-29 06:18] LABS: INR 1.2 (0.8-1.2); PT - PROTHROMBIN TIME 13.8 secs (9.9-12.6)
[2017-05-29 06:34] LABS: ALBUMIN/GLOBULIN RATIO 1.3 (1.0-2.2); BILIRUBIN,TOTAL 1.3 mg/dL (0.2-1.0); CREATININE 4.3 mg/dL (0.4-1.0); MAGNESIUM 2.3 mg/dL (1.7-2.8); PHOSPHORUS 5.1 mg/dL (2.5-4.6); TOTAL PROTEIN 7.5 g/dL (6.7-8.2)
[2017-05-29 06:38] LABS: HEMOGLOBIN A1C 0.41 g/dL
[2017-05-29] MEDS: INSULIN ASPART 300 UNIT/3 ML PEN SUBQ SCH ×3 (07:54→16:59)
[2017-05-29] MEDS ORDERED: PRENATAL VITAMIN TABLET PO SCH (08:00)
[2017-05-29] MEDS ORDERED: CHOLECALCIFEROL 1,000 UNIT TABLET PO SCH (09:00)
[2017-05-29] MEDS ORDERED: ASCORBIC ACID CHEW 500 MG TABLET PO SCH (09:00)
[2017-05-29] MEDS ORDERED: ISOSORBIDE MONONITRATE ER 30 MG TABLET PO SCH (09:00)
[2017-05-29] MEDS ORDERED: ENOXAPARIN 30 MG/0.3 ML SYRINGE SUBQ SCH (09:00)
[2017-05-29] MEDS ORDERED: FAMOTIDINE 20 MG TABLET PO SCH (09:00)
[2017-05-29] MEDS ORDERED: FLUTICASONE NASAL SPRAY NAS SCH (09:00)
[2017-05-29] MEDS ORDERED: POLYETHYLENE GLYCOL 3350 17 GM PACKET PO SCH ×2 (09:00)
[2017-05-29] MEDS ORDERED: POTASSIUM CHLORIDE 20 MEQ TABLET PO SCH (09:00)
[2017-05-29] MEDS ORDERED: ALLOPURINOL 100 MG TABLET PO SCH (09:00)
[2017-05-29] MEDS ORDERED: AZITHROMYCIN INJ 500 MG in SODIUM CHLORIDE 0.9% 250 ML IV SCH (09:00)
[2017-05-29] MEDS ORDERED: CARVEDILOL 12.5 MG TABLET PO SCH (09:00)
[2017-05-29] MEDS ORDERED: CALCITRIOL 0.25 MCG CAPSULE PO SCH (09:00)
[2017-05-29] MEDS ORDERED: FLUoxetine 10 MG CAPSULE PO SCH (09:00)
--- NOTE | 2017-05-29 11:43 | Discharge Plan ---
Discharge Plan Disposition: 02 Transfer Acute Care Hosp Condition: Serious Diet: Low Sodium Activity Restrictions: Activity as Tolerated No Smoking: If you smoke, Please STOP! Call for help. Follow-up with: FELIPE MARROQUIN MD [Primary Care Provider] -
--- NOTE | 2017-05-29 11:57 | DISCHARGE SUMMARY ---
Discharge Summary Admit Date: 05/29/17 Discharge Date: 05/29/17 Discharging Provider: Delores Sung MD Primary Care Provider: Wild Justice MD , Code Status: Attempt Resuscitation Condition at Discharge: Serious Discharge Disposition: 02 Transfer Acute Care Hosp Discharge Facility Name: [facility] - DIAGNOSES Discharge Diagnoses with Status of Each Condition: Acute sytolic congestive heart failure Acute on chronic respiratory failure with hypoxia Right lung pneumonia Right lung pleural effusion CKD Stage V, Creatinine 4.4 Anasarca Morbid obesity, BMI 46.9, 144 Kg HTN Chronic Afib on coumadin Type 2 DM controlled, with complications of neuropathy and nephropathy, 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 The patient states that all of her symptoms started about 2 weeks ago. She states that at that time she had a sore throat and was having cold-like symptoms. She states that she began having worsening lower extremity swelling which lasted for a couple of days and then symptoms began to improve. She states that symptoms then returned after a few days and then just over the last few days became significantly worse. She states that she had severe shortness of breath with just minimal exertion. She states that she has had severely increased swelling both in her lower extremities and up into her abdominal wall. The patient also states that she has been feeling weak overall. She admits to orthopnea she is unable to lie flat and has to sit up even to sleep. She denies any fevers or chills but does admit to cough. The patient states that she has gained about 40 pounds in the last 4 months. The patient did come into the emergency department 3 days ago and at that time was found to have a pneumonia and fluid overload thought to be secondary to her CKD and CHF. The patient was prescribed Lasix and azithromycin and discharged home. The patient had worsening of her symptoms over the course of the last 2 days and returned to the emergency department. The patient denies any headaches, blurred vision, runny nose, difficulty swallowing, nasal congestion, neck pain, chest pain, abdominal pain, nausea, vomiting, diarrhea, constipation, urinary urgency, urinary frequency, dysuria, muscle aches, changes in her appetite, or any new focal neurologic deficits. On presentation to the emergency department the patient was afebrile but she was quite tachypneic and did have some mild conversational dyspnea. The patient was also hypertensive but the remainder of her vital signs were normal and she was saturating well on room air. The patient underwent routine lab work which revealed a creatinine of 4.4 with a BUN of 89 this was improved from a day prior. The patient stated that she still is making urine. The patient's BNP was elevated at 1030 which is improved from 1130 just 3 days earlier. The patient's chest x-ray revealed mild CHF with medium-sized right basilar airspace disease and a medium size right pleural effusion. On exam the patient was very tachypneic had anasarca and significant crackles on examination. The patient was admitted for fluid overload secondary to CHF exacerbation and chronic kidney disease. - HOSPITAL COURSE Hospital Course: The patient was admitted for a very short duration. She was admitted as acute congestive heart failure secondary to chronic kidney disease stage V, on a progression toward dialysis with a new diagnosis of right lung pneumonia and right pleural effusion. She does have a very well-known history with her physician Wild Justice, nephrology at [facility]. The patient was here only a short time of approximately 8-9 hours. In that the 8-9 hours she continued to deteriorate with regards to congestive heart failure , increasing labored respiration. She is only on a nasal cannula and we are able to maintain her O2 sats at 94-98%. However respiratory rate continues to be labored and most importantly we are unable to diurese her successfully. She cannot lay down at all and is sitting up at the side of the bed leaning against the raised head of bed. We have given her Lasix 100 mg IV this morning and she received Lasix in the emergency room. She is only been able to produce 400 cc of urine with this amount of Lasix. Her blood pressures remained stable at 154- 163 systolic. Her A. fib rate has been controlled at 84-85. And her glucoses remained stable at 110-127. However, with increasing labored respiration, and a slightly rising BNP from 1030 to 1107 I thought it prudent to contact her electrical sign wirer. Dr. Alisha Bazan knows her well. He describes her as difficult to diurese. I offered to start her on a Bumex or Lasix drip. And see if I could temporize her. But he states that she is a difficult person to diurese, and he recognizes that we are a critical access hospital with limited access to a higher level of care. As such he has suggested transfer. I have contacted [facility] cancer registry coordinator and Dr. Ly Fisher has accepted the patient in transfer. - ALLERGIES Allergies/Adverse Reactions: Allergies Allergy/AdvReac Type Severity Reaction Status Date / Time amiodarone Allergy Edema Verified 05/29/17 00:44 amlodipine Allergy Edema Verified 05/29/17 00:44 - MEDICATIONS Home Medications: Ambulatory Orders Medication Instructions Recorded Confirmed Acetaminophen 650 mg PO PRN PRN 05/26/17 05/29/17 Albuterol 1 neb INH PRN PRN 05/26/17 05/29/17 Allopurinol 300 mg PO DAILY 05/26/17 05/26/17 Ascorbic Acid [Vitamin C] 500 mg PO DAILY 05/26/17 05/29/17 Azithromycin [Zithromax] 250 mg PO DAILY #4 tablet 05/26/17 Bumetanide [Bumex] 4 mg PO BID 05/26/17 05/26/17 Calcitriol [Rocaltrol] 1 cap PO DAILY 05/26/17 05/26/17 Calcium Carbonate [Tums (Calcium 1,000 mg PO PRN PRN 05/26/17 05/29/17 Carbonate 500mg)] Carvedilol 12.5 mg PO BID 05/26/17 05/26/17 Cholecalciferol (Vitamin D3) 1,000 unit PO DAILY 05/26/17 05/29/17 [Vitamin D3] Diclofenac Sodium [Voltaren] 1 applic TOP TID 05/26/17 05/26/17 FLUoxetine [PROzac] 20 mg PO DAILY 05/26/17 05/26/17 Ferrous Sulfate 325 mg PO DAILY PM 05/26/17 05/29/17 Fluticasone [Flonase] 1 sprays MARIELLE DAILY 05/26/17 05/26/17 Furosemide [Lasix] 40 mg PO DAILY #5 tablet 05/26/17 Glucagon,Human Recombinant 1 mg IJ PRN PRN 05/26/17 05/26/17 [Glucagon Emergency Kit] Isosorbide Mononitrate [Isosorbide 30 mg PO DAILY 05/26/17 05/26/17 Mononitrate ER] Lisinopril 1 tab PO BID 05/26/17 05/26/17 Melatonin 3 mg PO 2100 PRN 05/26/17 05/29/17 Phenytoin [Dilantin] 400 mg PO DAILY PM 05/26/17 05/26/17 Pnv No.95/Ferrous Fum/Folic AC 1 tab PO DAILY 05/26/17 05/29/17 [ Multivitamin Tablet] Polyethylene Glycol 3350 [Miralax] 17 gm PO DAILY PRN 05/26/17 05/29/17 Potassium Chloride [K-Dur] 60 mg PO BID 05/26/17 05/26/17 Senna [Senokot] 8.6 mg PO DAILY 05/26/17 05/29/17 Simethicone [Gas Relief] 80 mg PO Q6H PRN 05/26/17 05/29/17 hydrALAZINE [Apresoline] 25 mg PO TID 05/26/17 05/26/17 tiZANidine [Zanaflex] 2 mg PO PRN PRN 05/26/17 05/26/17 - PHYSICAL EXAM AT DISCHARGE General Appearance: positive: Moderate distress (respiratory), Other (obese pleasant black female barely able to keep her eyes open as she struggles to breath) Eyes Bilateral: positive: PERRL, EOMI ENT: positive: Dry mucous membranes (mouth breathing with nasal canula) Neck: positive: Other (JVD present). negative: Carotid bruit Respiratory: positive: Wheezes, Rales, Other (respiratory distress with use of abd muscles and no rib retraction yet) Cardiovascular: positive: Irregularly irregular. negative: Gallop/S4, Friction rub Peripheral Pulses: positive: 2+ Abdomen: positive: Non-tender, Abnml bowel sounds (quiet), Other (anasarca). negative: Guarding, Rebound Skin: positive: Other (whole body edema) Extremities: positive: Pedal edema Neurologic/Psychiatric: positive: Oriented x3, CN's nml (2-12), Motor nml (but her dodson restricts her from doing any activity, including sitting up on her own) - LABS Result Diagrams: 05/29/17 05:45 05/29/17 05:45
[2017-05-29 16:01] VITALS: BP 145/87
[2017-05-29] MEDS ORDERED: FERROUS SULFATE 325 MG TABLET PO SCH (21:00)
== END 2017-05-29 17:30 | disposition short-term general hospital (02) | DRG 291 ==
LOC: ED 00:24 → MS2 03:16
PROVIDERS: ADMIT Internal Medicine; ATTEND Specialist
DX: I13.2 Hypertensive heart and chronic kidney disease with heart failure and with stage 5 chronic kidney disease, or end stage renal disease (principal); I50.21 Acute systolic (congestive) heart failure; J96.21 Acute and chronic respiratory failure with hypoxia; J18.1 Lobar pneumonia, unspecified organism; Z68.42 Body mass index [BMI] 45.0-49.9, adult; I69.351 Hemiplegia and hemiparesis following cerebral infarction affecting right dominant side; N18.5 Chronic kidney disease, stage 5; E11.22 Type 2 diabetes mellitus with diabetic chronic kidney disease; E87.70 Fluid overload, unspecified; E11.42 Type 2 diabetes mellitus with diabetic polyneuropathy; E66.01 Morbid (severe) obesity due to excess calories; I48.2 Chronic atrial fibrillation; F32.9 Major depressive disorder, single episode, unspecified; M10.9 Gout, unspecified; D63.1 Anemia in chronic kidney disease; Z95.2 Presence of prosthetic heart valve; Z86.69 Personal history of other diseases of the nervous system and sense organs
CPT/HCPCS: 36415; 71020; 80053; 83036; 83605; 83690; 83735; 83880; 84100; 84484; 85025; 85610; 87040; 93005; 93306; 96374; 99284; 99285

== ENCOUNTER 2017-07-07 15:24 | Outpatient (CLI) | payer OTHER | END 2017-07-07 15:25 | disposition EMS.NT | LOC: EMS 15:24 | PROVIDERS: ATTEND Surgery | DX: R56.9 Unspecified convulsions (principal) ==

== ENCOUNTER 2017-07-20 16:15 | Emergency (ER) | payer OTHER ==
[2017-07-20 16:25] VITALS: BP 125/72
[2017-07-20] MEDS ORDERED: LIDOCAINE 2% URO-JET 5 ML SYRINGE UR ONE (17:07)
[2017-07-20] MEDS ORDERED: LIDOCAINE JELLY 2% 5 ML TUBE TOP STA (17:09)
--- NOTE | 2017-07-20 17:40 | ED Physician Documentation ---
PD HPI SKIN - Stated complaint Stated Complaint: R FOOT WOUND CHECK - Chief complaint Chief Complaint: Wound - History obtained from History obtained from: Patient - History of Present Illness Timing - onset: How many weeks ago (2.5 weeks) Timing - details: Still present Location: [facility] Quality / character: Painful Improved by: Antibiotics Contributing factors: Unknown Recently seen: Clinic - Treatment prior to arrival Treatment prior to arrival: Clindamycin and levofloxacin, as well as topical antibiotic gel. - Additional information Additional information: The patient is a 62-year-old female with history of diabetes and chronic renal failure, on dialysis, who presents with an ulcer on the dorsum of her right foot. It first started 2-1/2 weeks ago, and is painful, especially with weightbearing. She denies any traumatic injury. She was seen in dermatology clinic 1 week ago. An x-ray at that time revealed no evidence of osteomyelitis. She was prescribed clindamycin, levofloxacin, and antibiotic topical gel. She states the redness and swelling have improved since being on the antibiotic therapy. She was seen by her primary physician 2 days ago. She presents to the emergency department now because of persistent pain despite improvement of the redness and swelling. Review of Systems Constitutional: denies: Fever Nose: denies: Congestion Throat: denies: Sore throat Cardiac: denies: Chest pain / pressure Respiratory: denies: Dyspnea, Cough GI: denies: Abdominal Pain, Nausea, Vomiting : reports: Other (Chronic renal failure, on dialysis.). denies: Dysuria Skin: reports: Lesions (ulceration on dorsum of right foot.). denies: Rash Musculoskeletal: reports: Extremity pain (right foot) Neurologic: reports: Numbness (peripheral neuropathy). 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 HEENT: Glaucoma Psych: Depression Musculoskeletal: Osteoarthritis, Gout - Past Surgical History Past Surgical History: Yes /GOLF TOURNAMENT CONSULTANT: Other Cardiovascular: Valve replacement Neuro: Other - Present Medications Home Medications: Ambulatory Orders Medication Instructions Recorded Confirmed Acetaminophen 650 mg PO PRN PRN 05/26/17 05/29/17 Albuterol 1 neb INH PRN PRN 05/26/17 05/29/17 Allopurinol 300 mg PO DAILY 10/20/17 10/23/17 Ascorbic Acid [Vitamin C] 500 mg PO DAILY 05/26/17 05/29/17 Azithromycin [Zithromax] 250 mg PO DAILY #4 tablet 05/26/17 05/29/17 Bumetanide [Bumex] 4 mg PO BID 05/26/17 05/29/17 Calcitriol [Rocaltrol] 0.25 mcg PO DAILY 05/26/17 05/29/17 Calcium Carbonate [Tums (Calcium 1,000 mg PO PRN PRN 05/26/17 05/29/17 Carbonate 500mg)] Carvedilol 12.5 mg PO BID 05/26/17 05/29/17 Cholecalciferol (Vitamin D3) 1,000 unit PO DAILY 05/26/17 05/29/17 [Vitamin D3] Diclofenac Sodium [Voltaren] 1 applic TOP TID 05/26/17 05/29/17 FLUoxetine [PROzac] 20 mg PO DAILY 05/26/17 05/29/17 Ferrous Sulfate 325 mg PO DAILY PM 05/26/17 05/29/17 Fluticasone [Flonase] 1 sprays MARIELLE DAILY 05/26/17 05/29/17 Furosemide [Lasix] 40 mg PO DAILY #5 tablet 05/26/17 05/29/17 Glucagon,Human Recombinant 1 mg IJ PRN PRN 05/26/17 05/29/17 [Glucagon Emergency Kit] Isosorbide Mononitrate [Isosorbide 30 mg PO DAILY 05/26/17 05/29/17 Mononitrate ER] Lisinopril 10 mg PO BID 05/26/17 05/29/17 Melatonin 3 mg PO 2100 PRN 05/26/17 05/29/17 Phenytoin [Dilantin] 400 mg PO DAILY PM 05/26/17 05/29/17 Pnv No.95/Ferrous Fum/Folic AC 1 tab PO DAILY 05/26/17 05/29/17 [ Multivitamin Tablet] Polyethylene Glycol 3350 [Miralax] 17 gm PO DAILY PRN 05/26/17 05/29/17 Potassium Chloride [K-Dur] 60 mg PO BID 05/26/17 05/29/17 Senna [Senokot] 8.6 mg PO DAILY 05/26/17 05/29/17 Simethicone [Gas Relief] 80 mg PO Q6H PRN 05/26/17 05/29/17 hydrALAZINE [Apresoline] 25 mg PO TID 05/26/17 05/29/17 tiZANidine [Zanaflex] 2 mg PO PRN PRN 05/26/17 05/29/17 - Allergies Allergies/Adverse Reactions: Allergies Allergy/AdvReac Type Severity Reaction Status Date / Time amiodarone Allergy Edema Verified 05/29/17 00:44 amlodipine Allergy Edema Verified 07/20/17 16:25 - Living Situation Living Situation: reports: With family Living Arrangement: reports: At home - Social History Does the pt smoke?: No Smoking Status: Never smoker Does the pt drink ETOH?: No Does the pt have substance abuse?: No - Immunizations Immunizations are current?: Yes - POLST Patient has POLST: No POLST Status: Full Code PD ED PE NORMAL - Vitals Vital signs reviewed: Yes (normal) - General General: Alert and oriented X 3, Well developed/nourished - HEENT HEENT: Atraumatic - Cardiac Cardiac: RRR - Respiratory Respiratory: No respiratory distress, Clear bilaterally - Derm Derm: No rash - Extremities Extremities: No edema, No calf tenderness / cord, Other (There is a ulceration of about 7 mm diameter on the dorsum of the right foot. There is associated tenderness to palpation. There is slight surrounding erythema, without warmth to palpation. There is no fluctuance or purulent discharge. There is no lymphangitic streaking. There is no tenderness to palpation along the tendon sheath proximal to the ulceration.) - Neuro Neuro: Alert and oriented X 3, No motor deficit, Normal speech Results - Vitals Vitals: Oxygen O2 Source Room air PD MEDICAL DECISION MAKING - ED course Complexity details: considered differential, d/w patient, d/w family ED course: The patient's presentation is significant for a healing ulceration on the dorsum of the right side. There is no clinical evidence of abscess or osteomyelitis. Treatment in the emergency department included thorough cleaning of the wound after topical anesthesia with 2% lidocaine gel. I discussed with her and her daughter symptomatic wound care, continuation of currently prescribed antibiotic, outpatient follow-up, as well as potentially worrisome signs or symptoms that should prompt reevaluation in the emergency department. Departure - Departure Disposition: 01 Home, Self Care Clinical Impression: Foot ulcer, right Qualifiers: Non-pressure ulcer stage: unspecified non-pressure ulcer stage Qualified Code(s ): L97.519 - Non-pressure chronic ulcer of other part of right foot with unspecified severity Condition: Stable Instructions: ED Ulcer Venous Leg Follow-Up: FELIPE MARROQUIN MD [Primary Care Provider] - Comments: Soak your foot in warm water twice daily. Continue to use the antibiotic ointment. Continue the antibiotic medication until the prescription has been completed. 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 Return to the emergency department if you develop increasing redness, swelling, or pain of your foot, or otherwise worsening symptoms. Discharge Date/Time: 07/20/17 17:45
== END 2017-07-20 17:45 | disposition home or self-care (01) ==
LOC: ED 16:15
DX: E11.621 Type 2 diabetes mellitus with foot ulcer (principal); L97.519 Non-pressure chronic ulcer of other part of right foot with unspecified severity; E11.22 Type 2 diabetes mellitus with diabetic chronic kidney disease; I13.2 Hypertensive heart and chronic kidney disease with heart failure and with stage 5 chronic kidney disease, or end stage renal disease; N18.6 End stage renal disease; I50.9 Heart failure, unspecified; Z99.2 Dependence on renal dialysis; Z79.84 Long term (current) use of oral hypoglycemic drugs; E11.42 Type 2 diabetes mellitus with diabetic polyneuropathy; M19.90 Unspecified osteoarthritis, unspecified site; M10.9 Gout, unspecified; Z86.73 Personal history of transient ischemic attack (TIA), and cerebral infarction without residual deficits; Z95.2 Presence of prosthetic heart valve
CPT/HCPCS: 99282; 99283

== ENCOUNTER 2017-09-09 09:36 | Emergency (ER) | payer OTHER ==
[2017-09-09] MEDS ORDERED: ONDANSETRON ODT 4 MG TABLET TL STA (10:51)
[2017-09-09] MEDS ORDERED: HYDROmorphone 1 MG/ML SYRINGE IM STA (10:51)
--- NOTE | 2017-09-09 10:57 | ED Physician Documentation ---
History of Present Illness - Stated complaint Stated Complaint: RT FOOT PX - Chief complaint Chief Complaint: General - History obtained from History obtained from: Patient - History of Present Illness Timing: How many weeks ago (5) - Additonal information Additional information: 62-year-old female has had an ulceration on the dorsum of her right foot that has not healed over the past 5 weeks. She has been on some antibiotic she has been into see the vascular surgeon and has had a procedure to increase the blood supply to her foot and she is seeing folks at the wound clinic. She was on clindamycin and discontinued that when she started vomiting the doses. 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 They were not available at the pharmacy. Review of Systems Constitutional: reports: Myalgias, Fatigue. 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 : Other HEENT: Glaucoma Psych: Depression Musculoskeletal: Osteoarthritis, Gout - Past Surgical History Past Surgical History: Yes /WAREHOUSE DELIVERY DRIVER: Other Cardiovascular: Valve replacement, Pacemaker Neuro: Other - Present Medications Home Medications: Ambulatory Orders Medication Instructions Recorded Confirmed Acetaminophen [Tylenol] 2 tab PO DAILY 09/09/17 09/09/17 Allopurinol 1 tab PO DAILY 09/09/17 09/09/17 Amox/Clav 875/125 [Augmentin] 1 each PO Q12H #20 tablet 09/09/17 Bumetanide [Bumetanide] 3 tab PO BID 09/09/17 09/09/17 Calcium Carbonate [Tums (Calcium 2 tab PO TID 09/09/17 09/09/17 Carbonate 500mg)] Carvedilol [Carvedilol] 1 tab PO DAILY 09/09/17 09/09/17 Cholecalciferol (Vitamin D3) 1 tab PO DAILY 09/09/17 09/09/17 [Vitamin D3] FLUoxetine [PROzac] 2 tab PO DAILY 09/09/17 09/09/17 Fluticasone [Flonase] 2 spr MARIELLE DAILY 09/09/17 09/09/17 Glucagon,Human Recombinant 1 mg PO DAILY 09/09/17 09/09/17 [Glucagon Emergency Kit] Isosorbide Mononitrate [Isosorbide 1 tab PO DAILY 09/09/17 09/09/17 Mononitrate ER] Pnv95/Ferrous Fumarate/FA 1 tab PO DAILY 09/09/17 09/09/17 [ Formula Tablet] Polyethylene Glycol 3350 [Miralax] 1 tab PO DAILY 09/09/17 09/09/17 Senna [Senokot] 2 tab PO DAILY 09/09/17 09/09/17 Simethicone [Gas Relief] 2 tab PO DAILY 09/09/17 09/09/17 levETIRAcetam [Levetiracetam] 1 tab PO DAILY 09/09/17 09/09/17 oxyCODONE [Roxicodone] 1 tab PO Q4H 09/09/17 09/09/17 - Allergies Allergies/Adverse Reactions: Allergies Allergy/AdvReac Type Severity Reaction Status Date / Time amiodarone Allergy Edema Verified 09/09/17 10:37 amlodipine Allergy Edema Verified 09/09/17 10:37 - Social History Does the pt smoke?: No Smoking Status: Never smoker Does the pt drink ETOH?: No Does the pt have substance abuse?: No - Immunizations Immunizations are current?: Yes - POLST Patient has POLST: No POLST Status: Full Code PD ED PE NORMAL - Vitals Vital signs reviewed: Yes (wide pulse pressure) - General General: No acute distress, Well developed/nourished - HEENT HEENT: Atraumatic, PERRL, EOMI - Respiratory Respiratory: No respiratory distress - Derm Derm: Normal color, Warm and dry - Extremities Extremities: Other (Over the dorsum of the right foot over the distal first second and third metatarsals is a ulceration that is superficial and not healing. There is surrounding erythema and lymphangitic streaking to the proximal ankle there is no streaking to the calf. The area is tender in general there is no drainage from the area the base of the wound appears clean.) Results - Vitals Vitals: Vital Signs - 24 hr 09/09/17 09:44 Temperature 36.5 C Heart Rate 63 Respiratory 18 Rate Blood Pressure 115/57 L O2 Saturation 97 Oxygen O2 Source Room air - Rads (name of study) right foot Radiology: Prelim report reviewed (Impression: Regional soft tissue swelling. No underlying destructive bony process.), EMP read indepedently, See rad report PD MEDICAL DECISION MAKING - ED course Complexity details: reviewed old records, reviewed results, re-evaluated patient , considered differential, d/w patient ED course: 62-year-old female with a history of renal failure and peripheral vascular disease has a nonhealing ulcer on the dorsum of the right foot. This appears today to be infected her pain is out of control and she is administered Dilaudid IM and Zofran TL and an x-ray of the foot is obtained to rule out osteo -. The patient does get control of her pain with use of the Dilaudid and I have asked her to stay on top of her pain with her pain medication and we will add in some Augmentin to deal with the infection. Departure - Departure Disposition: 01 Home, Self Care Clinical Impression: Foot ulcer, right Qualifiers: Non-pressure ulcer stage: with fat layer exposed Qualified Code(s): L97.512 - Non-pressure chronic ulcer of other part of right foot with fat layer exposed Condition: Stable Instructions: ED Ulcer Skin Simple Follow-Up: FELIPE AMRROQUIN MD [Primary Care Provider] - Prescriptions: Amox/Clav 875/125 [Augmentin] 1 each PO Q12H #20 tablet
--- NOTE | 2017-09-09 11:32 | XRAY Preliminary Report ---
Exam: XR FOOT 3 VIEW RT IMPRESSION: Regional soft tissue swelling. No underlying destructive bony process. Consider tailored cross-sectional imaging with MRI if there is concern for occult osteomyelitis. Josei n radiographic changes may be delayed. [facility] SITE ID: [id number]
--- NOTE | 2017-09-09 11:34 | XRAY Report ---
EXAM: RIGHT FOOT RADIOGRAPHY EXAM DATE: 09/09/2017 11:03 AM. CLINICAL HISTORY: Soft tissue swelling. Nonhealing wound on top of foot. COMPARISON: None. TECHNIQUE: 3 views. FINDINGS: Bones: Diffuse demineralization. The cortices appear intact. No destructive bony process. Joints: Pes planus. Intertarsal and interphalangeal degenerative changes, nonspecific. Soft Tissues: Moderate regional soft tissue swelling. Advanced vascular calcifications present. IMPRESSION: Regional soft tissue swelling. No underlying destructive bony process. Consider tailored cross-sectional imaging with MRI if there is concern for occult osteomyelitis. Plai n radiographic changes may be delayed. [facility] Referring Provider Line: [phone] SITE ID: [id number]
[2017-09-09 12:29] VITALS: BP 104/50
== END 2017-09-09 12:28 | disposition home or self-care (01) ==
LOC: ED 09:36
DX: L97.512 Non-pressure chronic ulcer of other part of right foot with fat layer exposed (principal); I13.0 Hypertensive heart and chronic kidney disease with heart failure and stage 1 through stage 4 chronic kidney disease, or unspecified chronic kidney disease; I50.9 Heart failure, unspecified; N18.9 Chronic kidney disease, unspecified; E11.22 Type 2 diabetes mellitus with diabetic chronic kidney disease; E11.42 Type 2 diabetes mellitus with diabetic polyneuropathy; E11.51 Type 2 diabetes mellitus with diabetic peripheral angiopathy without gangrene; Z79.84 Long term (current) use of oral hypoglycemic drugs; I25.10 Atherosclerotic heart disease of native coronary artery without angina pectoris; I48.91 Unspecified atrial fibrillation; Z86.73 Personal history of transient ischemic attack (TIA), and cerebral infarction without residual deficits; M10.9 Gout, unspecified; M19.90 Unspecified osteoarthritis, unspecified site; E78.00 Pure hypercholesterolemia, unspecified
CPT/HCPCS: 73630; 96372; 99283; 99284; J1170; Q0162

== ENCOUNTER 2017-09-14 09:13 | Outpatient (CLI) | payer OTHER | END 2017-09-14 09:14 | disposition short-term general hospital (02) | LOC: EMS 09:13 | PROVIDERS: ATTEND Surgery | DX: M79.671 Pain in right foot (principal) | CPT/HCPCS: A0425; A0429 ==

== ENCOUNTER 2017-09-21 10:20 | Emergency (ER) | payer OTHER ==
[2017-09-21] MEDS ORDERED: GABAPENTIN 100 MG CAPSULE PO STA (11:19)
[2017-09-21] MEDS ORDERED: HYDROmorphone 1 MG/ML SYRINGE IM STA (11:19)
--- NOTE | 2017-09-21 11:38 | ED Physician Documentation ---
History of Present Illness - Stated complaint Stated Complaint: WOUND PX - Chief complaint Chief Complaint: Ext Problem - History obtained from History obtained from: Patient - History of Present Illness Timing: Today Pain level max: 10 Pain level now: 10 Improved by: wound care Worsened by: walking - Additonal information Additional information: Patient with chronic R foot pain from an ulcer on the dorsum of the foot. Seen at [facility] for wound care. Is on oxycontin 20mg PO BID and oxycodone 5-10mg PO q4- 6h PRN breakthrough. States that the pain is chronic and unchanged. She is requesting a dose of medication to help get her through her ultrasound later today. She states that the wound was just cleaned and bandaged at the [facility] unit today. 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 : Other HEENT: Glaucoma Psych: Depression Musculoskeletal: Osteoarthritis, Gout - Past Surgical History Past Surgical History: Yes /TRANSPORTATION DEPARTMENT SUPERVISOR: Other Cardiovascular: Valve replacement, Pacemaker Neuro: Other - Present Medications Home Medications: Ambulatory Orders Medication Instructions Recorded Confirmed Acetaminophen [Tylenol] 2 tab PO DAILY 09/09/17 09/09/17 Allopurinol 1 tab PO DAILY 09/09/17 09/09/17 Amox/Clav 875/125 [Augmentin] 1 each PO Q12H #20 tablet 09/09/17 Bumetanide [Bumetanide] 3 tab PO BID 09/09/17 09/09/17 Calcium Carbonate [Tums (Calcium 2 tab PO TID 09/09/17 09/09/17 Carbonate 500mg)] Carvedilol [Carvedilol] 1 tab PO DAILY 09/09/17 09/09/17 Cholecalciferol (Vitamin D3) 1 tab PO DAILY 09/09/17 09/09/17 [Vitamin D3] FLUoxetine [PROzac] 2 tab PO DAILY 09/09/17 09/09/17 Fluticasone [Flonase] 2 spr MARIELLE DAILY 09/09/17 09/09/17 Glucagon,Human Recombinant 1 mg PO DAILY 09/09/17 09/09/17 [Glucagon Emergency Kit] Isosorbide Mononitrate [Isosorbide 1 tab PO DAILY 09/09/17 09/09/17 Mononitrate ER] Pnv95/Ferrous Fumarate/FA 1 tab PO DAILY 09/09/17 09/09/17 [ Formula Tablet] Polyethylene Glycol 3350 [Miralax] 1 tab PO DAILY 09/09/17 09/09/17 Senna [Senokot] 2 tab PO DAILY 09/09/17 09/09/17 Simethicone [Gas Relief] 2 tab PO DAILY 09/09/17 09/09/17 levETIRAcetam [Levetiracetam] 1 tab PO DAILY 09/09/17 09/09/17 oxyCODONE [Roxicodone] 1 tab PO Q4H 09/09/17 09/09/17 Gabapentin 300 mg PO ONCE #7 capsule 09/21/17 - Allergies Allergies/Adverse Reactions: Allergies Allergy/AdvReac Type Severity Reaction Status Date / Time amiodarone Allergy Edema Verified 09/09/17 10:37 amlodipine Allergy Edema Verified 09/09/17 10:37 atenolol Allergy Edema Verified 09/21/17 10:41 - Social History Does the pt smoke?: No Smoking Status: Never smoker Does the pt drink ETOH?: No Does the pt have substance abuse?: No - Immunizations Immunizations are current?: Yes - POLST Patient has POLST: No POLST Status: Full Code PD ED PE NORMAL - Vitals Vital signs reviewed: Yes - General General: Alert and oriented X 3, No acute distress, Well developed/nourished - HEENT HEENT: Moist mucous membranes - Neck Neck: Supple, no meningeal sign - Cardiac Cardiac: RRR, Strong equal pulses - Respiratory Respiratory: No respiratory distress, Clear bilaterally - Derm Derm: Warm and dry - Extremities Extremities: Other (R foot - Tender to palpation along the dorsum of the foot. She does not want the foot unwrapped to be evaluated for the ulceration.) - Neuro Neuro: Alert and oriented X 3 - Psych Psych: Normal mood, Normal affect Results - Vitals Vitals: Vital Signs - 24 hr 09/21/17 09/21/17 09/21/17 10:26 11:34 11:57 Temperature 36.7 C Heart Rate 61 60 78 Respiratory 18 18 18 Rate Blood Pressure 137/67 H 119/71 O2 Saturation 99 99 100 Oxygen O2 Source Room air PD MEDICAL DECISION MAKING - ED course Complexity details: reviewed old records, considered differential, d/w patient ED course: Patient is a 62-year-old female with chronic right foot pain. Given a dose of pain medication here and will trial on gabapentin to see if this helps her. Possible neuropathic pain as well. She did recently have a stent placed in the right lower extremity. Has an ultrasound ordered for later today. Does not want to have this done in the emergency department and I think this is reasonable. She is on dialysis and so will just take the gabapentin after her dialysis treatments. Patient has narcotic pain medication for home. Also placed in a postoperative shoe to see if this helps her comfort. Patient counseled regarding signs and symptoms for which I believe and urgent re- evaluation would be necessary. Patient with good understanding of and agreement to plan and is comfortable going home at this time This document was made in part using voice recognition software. While efforts are made to proofread this document, sound alike and grammatical errors may occur. Departure - Departure Disposition: 01 Home, Self Care Clinical Impression: Foot pain Qualifiers: Laterality: right Qualified Code(s): M79.671 - Pain in right foot Condition: Good Instructions: ED Chronic Pain Management Follow-Up: FELIPE MARROQUIN MD [Primary Care Provider] - Within 3 Days Merlin Alejo MD [Provider Admit Priv/Credential] - Sommer Tiwari MD [Provider Admit Priv/Credential] - Prescriptions: Gabapentin 300 mg PO ONCE #7 capsule Comments: Return if you worsen. Take the gabapentin three times a week (one pill after each dialysis session) to see if this helps your pain. Discharge Date/Time: 09/21/17 11:57
[2017-09-21 11:59] VITALS: BP 119/71
== END 2017-09-21 11:57 | disposition home or self-care (01) ==
LOC: ED 10:20
DX: M79.671 Pain in right foot (principal); G89.29 Other chronic pain; I11.0 Hypertensive heart disease with heart failure; I50.9 Heart failure, unspecified; I25.10 Atherosclerotic heart disease of native coronary artery without angina pectoris; E78.00 Pure hypercholesterolemia, unspecified; E11.42 Type 2 diabetes mellitus with diabetic polyneuropathy; Z95.0 Presence of cardiac pacemaker; Z95.2 Presence of prosthetic heart valve; Z86.73 Personal history of transient ischemic attack (TIA), and cerebral infarction without residual deficits
CPT/HCPCS: 96372; 99283; A9270; J1170

== ENCOUNTER 2017-09-21 15:49 | Outpatient (CLI) | payer OTHER ==
--- NOTE | 2017-09-22 15:47 | Ultrasound Report ---
RIGHT LEG ARTERIAL DUPLEX: 09/21/2017 CLINICAL INDICATION: Diabetes, peripheral vascular disease, pain. TECHNIQUE: Real-time sonographic vascular imaging was performed by the logistics analytics manager through the lower extremities utilizing both color-flow and Doppler spectral analysis. Multiple manufacturer's service representative static images were saved for review. RIGHT SIDE SITE PSV WAVEFORM STEN MANAGER OF INVESTIGATIONS 80 monophasic [] PSFA 99 biphasic [] MSFA 77 biphasic [] DSFA 62 biphasic [] PFA 97 biphasic [] POP 60 biphasic [] BENY 61 biphasic [] MACHINE SILK SCREEN PRINTER 53 monophasic [] PER 36 monophasic [] DPA 10 monophasic [] FINDINGS RIGHT LEG: Waveforms are predominantly biphasic. There is no evidence of a focal velocity increase to suggest a hemodynamically significant stenosis. IMPRESSION: NO EVIDENCE OF A HEMODYNAMICALLY SIGNIFICANT ARTERIAL STENOSIS IN THE RIGHT LEG. PREDOMINANTLY BIPHASIC WAVEFORMS, SUGGESTIVE OF INFLOW DISEASE. TD: 09/22/2017 13:20 MTDD
== END 2017-09-21 15:50 | disposition home or self-care (01) ==
LOC: DI 15:49
PROVIDERS: ATTEND Surgery Vascular Surgery
DX: E11.51 Type 2 diabetes mellitus with diabetic peripheral angiopathy without gangrene (principal)

== ENCOUNTER 2017-11-17 12:14 | Outpatient (CLI) | payer OTHER | END 2017-11-17 12:15 | disposition EMS.NT | LOC: EMS 12:14 | PROVIDERS: ATTEND Surgery | DX: Z03.89 Encounter for observation for other suspected diseases and conditions ruled out (principal); W18.39XA Other fall on same level, initial encounter; Y92.003 Bedroom of unspecified non-institutional (private) residence as the place of occurrence of the external cause ==

== ENCOUNTER 2017-12-01 20:48 | Outpatient (CLI) | payer OTHER | END 2017-12-01 20:49 | disposition EMS.NT | LOC: EMS 20:48 | PROVIDERS: ATTEND Surgery | DX: R04.0 Epistaxis (principal) ==

== ENCOUNTER 2017-12-22 03:35 | Emergency (ER) | payer OTHER ==
--- NOTE | 2017-12-22 04:26 | ED Physician Documentation ---
PD HPI HEENT - Stated complaint Stated Complaint: NOSE BLEED - Chief complaint Chief Complaint: Heent - History obtained from History obtained from: Patient - History of Present Illness Timing - onset: How many hours ago (2) Timing - details: Abrupt onset Pain level now: 0 Location: Nose (right nare) Recently seen: Not recently seen - Additional information Additional information: c/o sudden onset right nare epistaxis, shortly after blowing her nose. Review of Systems Nose: reports: Epistaxis. 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 HEENT: Glaucoma Psych: Depression Musculoskeletal: Osteoarthritis, Gout Other Past Medical History: dialysis MWF - Past Surgical History Past Surgical History: Yes /QUALITY ASSURANCE TESTER: Other Cardiovascular: Valve replacement, Pacemaker Neuro: Other - Present Medications Home Medications: Ambulatory Orders Medication Instructions Recorded Confirmed Allopurinol 1 tab PO DAILY 09/09/17 09/09/17 Bumetanide [Bumetanide] 3 tab PO BID 09/09/17 09/09/17 Carvedilol [Carvedilol] 1 tab PO DAILY 09/09/17 09/09/17 Cholecalciferol (Vitamin D3) 1 tab PO DAILY 09/09/17 09/09/17 [Vitamin D3] Glucagon,Human Recombinant 1 mg PO PRN PRN 09/09/17 12/22/17 [Glucagon Emergency Kit] Isosorbide Mononitrate [Isosorbide 1 tab PO DAILY 09/09/17 09/09/17 Mononitrate ER] Polyethylene Glycol 3350 [Miralax] 1 tab PO DAILY 09/09/17 09/09/17 Senna [Senokot] 2 tab PO DAILY 09/09/17 09/09/17 Simethicone [Gas Relief] 2 tab PO DAILY 09/09/17 09/09/17 levETIRAcetam [Levetiracetam] 1 tab PO DAILY 09/09/17 09/09/17 oxyCODONE [Roxicodone] 1 tab PO Q4H 09/09/17 09/09/17 Gabapentin 300 mg PO ONCE #7 capsule 09/21/17 Acetaminophen/Cod 300/30 [Tylenol 1 tab PO PRN PRN 12/22/17 12/22/17 #3] Cadexomer Iodine 0.9 TOP DAILY 12/22/17 Collagenase Clostridium Hist. 1 applic TOP DAILY 12/22/17 [Santyl] HYDROcod/ACETAM 5/325 [[place] 5/325] 1 - 2 tab PO PRN PRN 12/22/17 Lanthanum Carbonate 500 mg PO TID 12/22/17 oxyCODONE [Roxicodone] 30 mg PO BID 12/22/17 - Allergies Allergies/Adverse Reactions: Allergies Allergy/AdvReac Type Severity Reaction Status Date / Time amiodarone Allergy Edema Verified 09/09/17 10:37 amlodipine Allergy Edema Verified 09/09/17 10:37 atenolol Allergy Edema Verified 09/21/17 10:41 - Social History Does the pt smoke?: No Smoking Status: Never smoker Does the pt drink ETOH?: No Does the pt have substance abuse?: No - Immunizations Immunizations are current?: Yes - POLST Patient has POLST: No POLST Status: Full Code PD ED PE NORMAL - Vitals Vital signs reviewed: Yes - General General: Alert and oriented X 3, No acute distress, Well developed/nourished - HEENT HEENT: Moist mucous membranes PD ED PE EXPANDED - HEENT HEENT: Other (small amount dried, clotted blood left nare. there is large, occluding blood clot in right nare) Results - Vitals Vitals: Oxygen O2 Source Room air Procedures - Epistaxis Site: Right Preparation: Clots removed (large clots removed from right nare with combination of suction and forceps), Afrin, Lidocaine Treatment: Silver Nitrate Other: Observed - no bleeding, Pt tolerated well PD MEDICAL DECISION MAKING - ED course Complexity details: re-evaluated patient, considered differential, d/w patient Departure - Departure Disposition: 01 Home, Self Care Clinical Impression: Epistaxis Condition: Good Instructions: ED Nosebleed Discharge Date/Time: 12/22/17 06:34
[2017-12-22] MEDS ORDERED: LIDOCAINE VISCOUS 2% 15 ML UDC MM STA (04:36)
[2017-12-22] MEDS ORDERED: OXYMETAZOLINE NASAL SPRAY NAS STA (04:37)
[2017-12-22 06:34] VITALS: BP 139/74
== END 2017-12-22 06:34 | disposition home or self-care (01) ==
LOC: ED 03:35
DX: R04.0 Epistaxis (principal); I11.0 Hypertensive heart disease with heart failure; I50.9 Heart failure, unspecified; Z99.2 Dependence on renal dialysis; E11.9 Type 2 diabetes mellitus without complications; Z79.84 Long term (current) use of oral hypoglycemic drugs
CPT/HCPCS: 30901; 99282; 99283; A9270

== ENCOUNTER 2017-12-23 14:11 | Outpatient (CLI) | payer OTHER | END 2017-12-23 14:12 | disposition critical access hospital (66) | LOC: EMS 14:11 | PROVIDERS: ATTEND Surgery | DX: R04.0 Epistaxis (principal) | CPT/HCPCS: A0425; A0429 ==

== ENCOUNTER 2017-12-23 14:27 | Emergency (ER) | payer OTHER ==
[2017-12-23] MEDS ORDERED: OXYMETAZOLINE NASAL SPRAY NAS STA (14:33)
[2017-12-23] MEDS ORDERED: COCAINE 4 ML BOTTLE TOP STA (14:48)
[2017-12-23] MEDS ORDERED: TRANEXAMIC ACID 1,000 MG/10 ML VIAL NAS STA (15:24)
[2017-12-23 15:32] LABS: BASOPHILS % (AUTO) 1.2 %; LYMPHOCYTES # (AUTO) 0.8 10^3/uL (1.5-3.5); LYMPHOCYTES % (AUTO) 23.7 %; MEAN CORPUSCULAR HEMOGLOBIN 31.1 pg (27.0-31.0); MEAN CORPUSCULAR HGB CONC 31.6 g/dL (32.0-36.0); MEAN CORPUSCULAR VOLUME 98.2 fL (81.0-99.0); MONOCYTES # (AUTO) 0.4 10^3/uL (0.0-1.0); NEUTROPHILS # (AUTO) 2.1 10^3/uL (1.5-6.6); NEUTROPHILS % (AUTO) 63.1 %; PLT - PLATELET COUNT 88 10^3/uL (130-450); RED BLOOD COUNT 3.21 10^6/uL (4.20-5.40); RED CELL DISTRIBUTION WIDTH 16.7 % (12.0-15.0); WHITE BLOOD COUNT 3.4 x10^3/uL (4.8-10.8)
[2017-12-23 15:42] LABS: ALBUMIN 3.7 g/dL (3.2-5.5); CALCIUM 9.2 mg/dL (8.5-10.3); CREATININE 3.4 mg/dL (0.4-1.0); INR 1.2 (0.8-1.2); PT - PROTHROMBIN TIME 13.4 secs (9.9-12.6); TOTAL PROTEIN 7.5 g/dL (6.7-8.2)
[2017-12-23 16:10] VITALS: BP 164/95
--- NOTE | 2017-12-23 16:23 | ED Physician Documentation ---
PD HPI HEENT - Stated complaint Stated Complaint: NOSE BLEED - Chief complaint Chief Complaint: Heent - History obtained from History obtained from: Patient, EMS - History of Present Illness Timing - onset: Today (She was seen a couple of days ago for nosebleed, she has had nosebleeds all of her life. Cut loose again with heavy bleeding. She is chronic dialysis patient on Monday.) Review of Systems Constitutional: denies: Fever, Chills Ears: reports: Ear pain Nose: reports: Epistaxis. 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: Other Cardiovascular: Valve replacement, Pacemaker Neuro: Other - Present Medications Home Medications: Ambulatory Orders Medication Instructions Recorded Confirmed Allopurinol 1 tab PO DAILY 09/09/17 09/09/17 Bumetanide [Bumetanide] 3 tab PO BID 09/09/17 09/09/17 Carvedilol [Carvedilol] 1 tab PO DAILY 09/09/17 09/09/17 Cholecalciferol (Vitamin D3) 1 tab PO DAILY 09/09/17 09/09/17 [Vitamin D3] Glucagon,Human Recombinant 1 mg PO PRN PRN 09/09/17 12/22/17 [Glucagon Emergency Kit] Isosorbide Mononitrate [Isosorbide 1 tab PO DAILY 09/09/17 09/09/17 Mononitrate ER] Polyethylene Glycol 3350 [Miralax] 1 tab PO DAILY 09/09/17 09/09/17 Senna [Senokot] 2 tab PO DAILY 09/09/17 09/09/17 Simethicone [Gas Relief] 2 tab PO DAILY 09/09/17 09/09/17 levETIRAcetam [Levetiracetam] 1 tab PO DAILY 09/09/17 09/09/17 oxyCODONE [Roxicodone] 1 tab PO Q4H 09/09/17 09/09/17 Gabapentin 300 mg PO ONCE #7 capsule 09/21/17 Acetaminophen/Cod 300/30 [Tylenol 1 tab PO PRN PRN 12/22/17 12/22/17 #3] Cadexomer Iodine 0.9 TOP DAILY 12/22/17 Collagenase Clostridium Hist. 1 applic TOP DAILY 12/22/17 [Santyl] HYDROcod/ACETAM 5/325 [[place] 5/325] 1 - 2 tab PO PRN PRN 12/22/17 Lanthanum Carbonate 500 mg PO TID 12/22/17 oxyCODONE [Roxicodone] 30 mg PO BID 12/22/17 Amoxicillin 500 mg PO TID #15 capsule 12/23/17 - Allergies Allergies/Adverse Reactions: Allergies Allergy/AdvReac Type Severity Reaction Status Date / Time amiodarone Allergy Edema Verified 12/23/17 14:38 amlodipine Allergy Edema Verified 12/23/17 14:38 atenolol Allergy Edema Verified 12/23/17 14:38 - Social History Does the pt smoke?: No Smoking Status: Never smoker Does the pt drink ETOH?: No Does the pt have substance abuse?: No - Immunizations Immunizations are current?: Yes - POLST Patient has POLST: No POLST Status: Full Code PD ED PE NORMAL - Vitals Vital signs reviewed: Yes - General General: Alert and oriented X 3, No acute distress - HEENT HEENT: PERRL, EOMI, Other (Hemotympanum on the left, active heavy bleeding on the right from an anterior source.) - Neck Neck: Supple, no meningeal sign, No bony TTP - Neuro Neuro: Alert and oriented X 3, Normal speech - Psych Psych: Normal mood, Normal affect Results - Vitals Vitals: Vital Signs - 24 hr 12/23/17 12/23/17 14:34 16:09 Temperature 36.3 C L 36.4 C L Heart Rate 74 80 Respiratory 16 20 Rate Blood Pressure 155/83 H 164/95 H O2 Saturation 97 98 Oxygen O2 Source Room air - Labs Labs: Laboratory Tests 12/23/17 12/23/17 12/23/17 15:16 15:16 15:16 WBC 3.4 L RBC 3.21 L Hgb 10.0 L Hct 31.5 L MCV 98.2 MCH 31.1 H MCHC 31.6 L RDW 16.7 H Plt Count 88 L MPV 9.0 Neut # 2.1 Lymph # 0.8 L [place] # 0.4 Eos # 0.0 Baso # 0.0 Absolute Nucleated RBC 0.00 Nucleated RBC % 0.0 PT 13.4 H INR 1.2 APTT 29.0 Sodium 140 Potassium 4.3 Chloride 99 L Carbon Dioxide 24 Anion Gap 17.0 H BUN 23 H Creatinine 3.4 H Estimated GFR (MDRD) 17 L Glucose 106 H Calcium 9.2 Total Bilirubin 1.0 AST 17 ALT 16 Alkaline Phosphatase 127 H Total Protein 7.5 Albumin 3.7 Globulin 3.8 Albumin/Globulin Ratio 1.0 Lipase 28 Procedures - Epistaxis Site: Right, Anterior Preparation: Clots removed, Other (Initially used Afrin and then cocaine. I was able to visualize the bleeding spot and I tried silver nitrate on it which was not effective so than she was packed with an anterior Rhino Rocket.) PD MEDICAL DECISION MAKING - ED course ED course: Labs are at her baseline. She was observed for about 45 minutes with no significant further bleeding. Follow up with ENT was advised. Departure - Departure Disposition: 01 Home, Self Care Clinical Impression: CKD (chronic kidney disease) stage 5, GFR less than 15 ml/min, Epistaxis Condition: Stable Record reviewed to determine appropriate education?: Yes Instructions: Nosebleed Prescriptions: Amoxicillin 500 mg PO TID #15 capsule Comments: Return for worsening symptoms or new symptoms. I recommend following up with an ear nose and throat doctor in a few days, the closest is in [place], the phone number is [phone], call first thing Monday for an appointment.
== END 2017-12-23 17:06 | disposition home or self-care (01) ==
LOC: EDUNIT# → EDBD → ED 14:27
DX: R04.0 Epistaxis (principal); N18.5 Chronic kidney disease, stage 5; E11.22 Type 2 diabetes mellitus with diabetic chronic kidney disease; I13.2 Hypertensive heart and chronic kidney disease with heart failure and with stage 5 chronic kidney disease, or end stage renal disease; I50.9 Heart failure, unspecified; Z79.84 Long term (current) use of oral hypoglycemic drugs; Z99.2 Dependence on renal dialysis
CPT/HCPCS: 30903; 36415; 80053; 83690; 85025; 85610; 85730; 99283; 99284; A9270

== ENCOUNTER 2018-01-20 19:51 | Outpatient (CLI) | payer OTHER | END 2018-01-20 19:52 | disposition critical access hospital (66) | LOC: EMS 19:51 | PROVIDERS: ATTEND Surgery | DX: R04.0 Epistaxis (principal) | CPT/HCPCS: A0425; A0429 ==

== ENCOUNTER 2018-01-20 20:04 | Emergency (ER) | payer OTHER ==
[2018-01-20] MEDS ORDERED: OXYMETAZOLINE NASAL SPRAY NAS STA (20:27)
[2018-01-20] MEDS ORDERED: TRANEXAMIC ACID 1,000 MG/10 ML VIAL NAS STA (20:27)
[2018-01-20] MEDS ORDERED: WATER FOR INJECTION,STERILE 10 ML ONE (20:43)
--- NOTE | 2018-01-20 21:04 | ED Physician Documentation ---
PD [facility] HEENT - Stated complaint Stated Complaint: NOSEBLEED - Chief complaint Chief Complaint: Heent - History obtained from History obtained from: Patient - History of Present Illness Timing - onset: Today Timing - duration: Hours (1) Timing - details: Abrupt onset Pain level max: 0 Pain level now: 0 Location: Other (R nare) Improves: Nothing Worsens: Everything (started after sneezing tonight) Associated symptoms: No: Fever, Congestion, Rhinorrhea, Trismus, Unable to swallow, Swollen nodes, Facial swelling, Headache, Cough Similar symptoms before: Diagnosis (epistaxis, has been seeing ENT. 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 HEENT: Glaucoma Psych: Depression Musculoskeletal: Osteoarthritis, Gout - Past Surgical History Past Surgical History: Yes /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: Other Cardiovascular: Valve replacement, Pacemaker Neuro: Other - Present Medications Home Medications: Ambulatory Orders Medication Instructions Recorded Confirmed Allopurinol 1 tab PO DAILY 09/09/17 09/09/17 Bumetanide [Bumetanide] 3 tab PO BID 09/09/17 09/09/17 Carvedilol [Carvedilol] 1 tab PO DAILY 09/09/17 09/09/17 Cholecalciferol (Vitamin D3) 1 tab PO DAILY 09/09/17 09/09/17 [Vitamin D3] Glucagon,Human Recombinant 1 mg PO PRN PRN 09/09/17 12/22/17 [Glucagon Emergency Kit] Isosorbide Mononitrate [Isosorbide 1 tab PO DAILY 09/09/17 09/09/17 Mononitrate ER] Polyethylene Glycol 3350 [Miralax] 1 tab PO DAILY 09/09/17 09/09/17 Senna [Senokot] 2 tab PO DAILY 09/09/17 09/09/17 Simethicone [Gas Relief] 2 tab PO DAILY 09/09/17 09/09/17 levETIRAcetam [Levetiracetam] 1 tab PO DAILY 09/09/17 09/09/17 oxyCODONE [Roxicodone] 1 tab PO Q4H 09/09/17 09/09/17 Gabapentin 300 mg PO ONCE #7 capsule 09/21/17 Acetaminophen/Cod 300/30 [Tylenol 1 tab PO PRN PRN 12/22/17 12/22/17 #3] Cadexomer Iodine 0.9 TOP DAILY 12/22/17 Collagenase Clostridium Hist. 1 applic TOP DAILY 12/22/17 [Santyl] HYDROcod/ACETAM 5/325 [[place] 5/325] 1 - 2 tab PO PRN PRN 12/22/17 Lanthanum Carbonate 500 mg PO TID 12/22/17 oxyCODONE [Roxicodone] 30 mg PO BID 12/22/17 Amoxicillin 500 mg PO TID #15 capsule 12/23/17 Cephalexin [Keflex] 500 mg PO Q6H #12 capsule 01/20/18 - Allergies Allergies/Adverse Reactions: Allergies Allergy/AdvReac Type Severity Reaction Status Date / Time amiodarone Allergy Edema Verified 01/20/18 20:09 amlodipine Allergy Edema Verified 01/20/18 20:09 atenolol Allergy Edema Verified 01/20/18 20:09 - Social History Does the pt smoke?: No Smoking Status: Never smoker Does the pt drink ETOH?: No Does the pt have substance abuse?: No - Immunizations Immunizations are current?: Yes - POLST Patient has POLST: No POLST Status: Full Code PD ED PE NORMAL - Vitals Vital signs reviewed: Yes - General General: Alert and oriented X 3, No acute distress - HEENT HEENT: Moist mucous membranes, Pharynx benign, Other (Heavy bleeding from the right nare) - Neck Neck: Supple, no meningeal sign - Cardiac Cardiac: RRR - Respiratory Respiratory: No respiratory distress, Clear bilaterally - Abdomen Abdomen: Soft, Non tender, Non distended - Derm Derm: Warm and dry - Neuro Neuro: Alert and oriented X 3 Results - Vitals Vitals: Vital Signs - 24 hr 01/20/18 01/20/18 01/20/18 20:07 20:09 21:52 Temperature 36.5 C 36.8 C Heart Rate 93 88 Respiratory 16 18 Rate Blood Pressure 160/108 H 156/110 H O2 Saturation 94 98 Oxygen O2 Source Room air Procedures - Epistaxis Site: Right, Cannot determine Preparation: Clots removed (Manual clot removal until the patient was able to blow her nose), Afrin, Clamp / pressure applied, Other (Tranexamic acid) Treatment: Packing inserted (Anterior nasal packing) Other: Observed - no bleeding, Pt tolerated well, O2 sat WNL, Antibiotics prescribed, Referred to ENT PD MEDICAL DECISION MAKING - ED course Complexity details: reviewed old records, re-evaluated patient, considered differential, d/w patient ED course: Patient is a 62-year-old female who presents to the emergency department with a brisk right-sided nosebleed. Several large clots were removed and Afrin was instilled into the nose. Tranexamic acid was then atomized into the nose as well. She continued to bleed. Anterior nasal packing was then placed and bleeding resolved. Patient tolerated well. Will prescribe antibiotics and have her follow-up with her ENT on Monday. Patient counseled regarding signs and symptoms for which I believe and urgent re-evaluation would be necessary. Patient with good understanding of and agreement to plan and is comfortable going home at this time This document was made in part using voice recognition software. While efforts are made to proofread this document, sound alike and grammatical errors may occur. - Sepsis Event Vital Signs: Vital Signs - 24 hr 01/20/18 01/20/18 01/20/18 20:07 20:09 21:52 Temperature 36.5 C 36.8 C Heart Rate 93 88 Respiratory 16 18 Rate Blood Pressure 160/108 H 156/110 H O2 Saturation 94 98 Oxygen O2 Source Room air Departure - Departure Disposition: 01 Home, Self Care Clinical Impression: Epistaxis Condition: Good Instructions: ED Nosebleed, ED Nasal Packing Anterior Removable Follow-Up: FELIPE MARROQUIN MD [Primary Care Provider] - Within 3 Days Prescriptions: Cephalexin [Keflex] 500 mg PO Q6H #12 capsule Comments: The packing should be removed on Monday with your doctor or ENT. Return if you worsen. Take the antibiotics as prescribed Discharge Date/Time: 01/20/18 22:03
[2018-01-20] MEDS ORDERED: cephALEXin 250 MG CAPSULE PO STA (21:32)
[2018-01-20 21:54] VITALS: BP 156/110
== END 2018-01-20 22:03 | disposition home or self-care (01) ==
LOC: EDUNIT# → ED 20:04
DX: R04.0 Epistaxis (principal); I10 Essential (primary) hypertension; E11.9 Type 2 diabetes mellitus without complications; Z79.84 Long term (current) use of oral hypoglycemic drugs
CPT/HCPCS: 30901; 99283; A9270

== ENCOUNTER 2018-01-29 17:53 | Outpatient (CLI) | payer OTHER | END 2018-01-29 17:54 | disposition short-term general hospital (02) | LOC: EMS 17:53 | PROVIDERS: ATTEND Surgery | DX: R04.0 Epistaxis (principal) | CPT/HCPCS: A0425; A0427 ==

== ENCOUNTER 2018-03-02 06:32 | Emergency (ER) | payer OTHER ==
[2018-03-02] MEDS ORDERED: OXYMETAZOLINE NASAL SPRAY NAS STA (06:44)
[2018-03-02] MEDS ORDERED: LIDOCAINE 2%-EPI 1:100000 20 ML MDV SUBQ STA (07:51)
--- NOTE | 2018-03-02 07:52 | ED Physician Documentation ---
PD HPI HEENT - Stated complaint Stated Complaint: NOSE BLEED - Chief complaint Chief Complaint: General - History obtained from History obtained from: Patient - History of Present Illness Timing - onset: How many hours ago (2) Timing - details: Still present Location: Nose Similar symptoms before: Diagnosis (Right anterior epistaxix) - Additional information Additional information: The patient is a 63-year-old female with history of diabetes and renal failure, on dialysis, who presents with right anterior nosebleed that started about 2 hours prior to arrival, after sneezing and cleaning her nose. She has a history of similar symptoms in the past. She was seen here 6 weeks ago with right anterior epistaxis, and underwent cautery and nasal packing at that time. She had a similar episode 1 month before that, as well. She does not take blood thinner medication. Review of Systems Constitutional: denies: Fever Nose: reports: Epistaxis. 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: Other Cardiovascular: Valve replacement, Pacemaker Neuro: Other - Present Medications Home Medications: Ambulatory Orders Medication Instructions Recorded Confirmed Allopurinol 1 tab PO DAILY 09/09/17 09/09/17 Bumetanide [Bumetanide] 3 tab PO BID 09/09/17 09/09/17 Carvedilol [Carvedilol] 1 tab PO DAILY 09/09/17 09/09/17 Cholecalciferol (Vitamin D3) 1 tab PO DAILY 09/09/17 09/09/17 [Vitamin D3] Glucagon,Human Recombinant 1 mg PO PRN PRN 09/09/17 12/22/17 [Glucagon Emergency Kit] Isosorbide Mononitrate [Isosorbide 1 tab PO DAILY 09/09/17 09/09/17 Mononitrate ER] Polyethylene Glycol 3350 [Miralax] 1 tab PO DAILY 09/09/17 09/09/17 Senna [Senokot] 2 tab PO DAILY 09/09/17 09/09/17 Simethicone [Gas Relief] 2 tab PO DAILY 09/09/17 09/09/17 levETIRAcetam [Levetiracetam] 1 tab PO DAILY 09/09/17 09/09/17 oxyCODONE [Roxicodone] 1 tab PO Q4H 09/09/17 09/09/17 Gabapentin 300 mg PO ONCE #7 capsule 09/21/17 Acetaminophen/Cod 300/30 [Tylenol 1 tab PO PRN PRN 12/22/17 12/22/17 #3] Cadexomer Iodine 0.9 TOP DAILY 12/22/17 Collagenase Clostridium Hist. 1 applic TOP DAILY 12/22/17 [Santyl] HYDROcod/ACETAM 5/325 [[place] 5/325] 1 - 2 tab PO PRN PRN 12/22/17 Lanthanum Carbonate 500 mg PO TID 12/22/17 oxyCODONE [Roxicodone] 30 mg PO BID 12/22/17 Amoxicillin 500 mg PO TID #15 capsule 12/23/17 Cephalexin [Keflex] 500 mg PO Q6H #12 capsule 01/20/18 cephALEXin [Cephalexin] 250 mg PO QID #12 tablet 03/02/18 - Allergies Allergies/Adverse Reactions: Allergies Allergy/AdvReac Type Severity Reaction Status Date / Time amiodarone Allergy Edema Verified 01/20/18 20:09 amlodipine Allergy Edema Verified 01/20/18 20:09 atenolol Allergy Edema Verified 01/20/18 20:09 - Social History Does the pt smoke?: No Smoking Status: Never smoker Does the pt drink ETOH?: No Does the pt have substance abuse?: No - Immunizations Immunizations are current?: Yes - POLST Patient has POLST: No POLST Status: Full Code PD ED PE NORMAL - Vitals Vital signs reviewed: Yes (Borderline hypertension.) - General General: Alert and oriented X 3, Well developed/nourished - HEENT HEENT: Atraumatic, Pharynx benign, Other (Right anterior epistaxis.) - Neck Neck: No adenopathy, No JVD - Cardiac Cardiac: RRR - Respiratory Respiratory: No respiratory distress, Clear bilaterally - Derm Derm: No rash - Neuro Neuro: Alert and oriented X 3, No motor deficit, Normal speech Results - Vitals Vitals: Vital Signs - 24 hr 03/02/18 09:57 Heart Rate 69 Respiratory 18 Rate Blood Pressure 149/78 H O2 Saturation 98 Oxygen O2 Source Room air Procedures - Epistaxis Site: Right, Anterior Preparation: Afrin, Lidocaine Treatment: Anterior rhinorocket Other: Observed - no bleeding, Pt tolerated well, O2 sat WNL, Antibiotics prescribed, Referred to ENT PD MEDICAL DECISION MAKING - ED course Complexity details: reviewed old records, re-evaluated patient, considered differential, d/w patient ED course: The patient's presentation is significant for right anterior epistaxis. This is a recurrent episode, having had 2 prior emergency department visits with similar symptoms in the past 3 months. Treatment in the emergency department included insertion of Merocel sponge, after topical anesthetic using lidocaine and Afrin. The patient was observed in the emergency department for 45 minutes and had no recurrent bleeding. Cephalexin 250 mg administered orally, and she is being discharged with prescription for cephalexin. She is being referred for outpatient follow-up to ENT clinic in [place]. I discussed with her potentially worrisome signs or symptoms that should prompt reevaluation in the emergency department. - Sepsis Event Vital Signs: Vital Signs - 24 hr 03/02/18 09:57 Heart Rate 69 Respiratory 18 Rate Blood Pressure 149/78 H O2 Saturation 98 Oxygen O2 Source Room air Departure - Departure Disposition: 01 Home, Self Care Clinical Impression: Epistaxis Condition: Stable Instructions: ED Nosebleed Follow-Up: MAXI FLORIAN MD [Physician No Access] - Prescriptions: cephALEXin [Cephalexin] 250 mg PO QID #12 tablet Comments: Keep the nasal packing in place for the next 3 days. Take cephalexin 4 times daily as prescribed. Follow up with ENT on Monday if possible for removal of the packing. Call today to schedule appointment. Return to the emergency department if recurrent bleeding or otherwise worsening symptoms. Discharge Date/Time: 03/02/18 10:13
[2018-03-02] MEDS ORDERED: BACITRACIN OINT TOP ONE (08:43)
[2018-03-02] MEDS ORDERED: cephALEXin 250 MG CAPSULE PO STA (09:20)
[2018-03-02 10:00] VITALS: BP 149/78
== END 2018-03-02 10:13 | disposition home or self-care (01) ==
LOC: ED 06:32
DX: R04.0 Epistaxis (principal); I10 Essential (primary) hypertension; E11.9 Type 2 diabetes mellitus without complications; Z79.84 Long term (current) use of oral hypoglycemic drugs
CPT/HCPCS: 30903; 99283; A9270

== ENCOUNTER 2018-05-14 13:34 | Outpatient (CLI) | payer OTHER ==
--- NOTE | 2018-05-14 15:37 | XRAY Report ---
Reason: ESRD ON HEMODIALYSIS Procedure Date: 05/14/2018 Accession Number: [id number] / [id number] Procedure: XR - Chest 2 View X-Ray CPT Code: 83800 FULL RESULT: EXAM: CHEST RADIOGRAPHY EXAM DATE: 05/14/2018 02:00 PM. CLINICAL HISTORY: ESRD on hemodialysis. COMPARISON: CHEST 2 VIEW PA/LAT 05/29/2017 1:36 AM. TECHNIQUE: 2 views. FINDINGS: Lungs/Pleura: No focal opacities evident. No pleural effusion. No pneumothorax. Normal volumes. Mediastinum: The cardiomediastinal contour is stable accounting for differences in technique with an atherosclerotic aorta. Other: A pacemaker is unchanged in configuration. Sternotomy changes appear stable. IMPRESSION: No radiographic evidence of prior granulomatous infection or active airspace disease. RADIA
== END 2018-05-14 13:35 | disposition home or self-care (01) ==
LOC: DI 13:34
PROVIDERS: ATTEND Internal Medicine Nephrology
DX: N18.6 End stage renal disease (principal); Z99.2 Dependence on renal dialysis
CPT/HCPCS: 71046

== ENCOUNTER 2018-10-12 19:30 | Emergency (ER) | payer SELFPAY ==
[2018-10-12] MEDS ORDERED: AMPICILLIN/SULBACTAM 3 GM in SODIUM CHLORIDE 0.9% MINIBAG 100 ML IV STA (20:27)
[2018-10-12 20:47] LABS: BASOPHILS # (AUTO) 0.1 10^3/uL (0.0-0.1); BASOPHILS % (AUTO) 0.7 %; EOSINOPHILS # (AUTO) 0.1 10^3/uL (0.0-0.7); EOSINOPHILS % (AUTO) 1.1 %; HGB - HEMOGLOBIN 9.8 g/dL (12.0-16.0); LYMPHOCYTES # (AUTO) 0.6 10^3/uL (1.5-3.5); LYMPHOCYTES % (AUTO) 4.6 %; MEAN CORPUSCULAR HEMOGLOBIN 32.6 pg (27.0-31.0); MEAN CORPUSCULAR HGB CONC 32.1 g/dL (32.0-36.0); MEAN CORPUSCULAR VOLUME 101.7 fL (81.0-99.0); MEAN PLATELET VOLUME 9.4 fL (7.9-10.8); MONOCYTES # (AUTO) 1.1 10^3/uL (0.0-1.0); MONOCYTES % (AUTO) 8.6 %; NEUTROPHILS # (AUTO) 11.1 10^3/uL (1.5-6.6); PLT - PLATELET COUNT 169 10^3/uL (130-450); RED BLOOD COUNT 3.01 10^6/uL (4.20-5.40); RED CELL DISTRIBUTION WIDTH 16.8 % (12.0-15.0); WHITE BLOOD COUNT 13.1 x10^3/uL (4.8-10.8)
[2018-10-12 20:56] LABS: ALBUMIN 3.1 g/dL (3.2-5.5); ALBUMIN/GLOBULIN RATIO 0.7 (1.0-2.2); BILIRUBIN,TOTAL 1.7 mg/dL (0.2-1.0); CALCIUM 8.5 mg/dL (8.5-10.3); CREATININE 4.6 mg/dL (0.4-1.0); TOTAL PROTEIN 7.4 g/dL (6.7-8.2)
--- NOTE | 2018-10-12 21:19 | XRAY Report ---
Reason: ulcer with redness, swelling Procedure Date: 10/12/2018 Accession Number: [id number] / [id number] Procedure: XR - Foot 3 View LT CPT Code: FULL RESULT: EXAM: LEFT FOOT RADIOGRAPHY EXAM DATE: 10/12/2018 08:44 PM. CLINICAL HISTORY: Ulcer with redness, swelling. COMPARISON: FOOT 3 VIEW RT 09/09/2017 11:02 AM. TECHNIQUE: 3 views. FINDINGS: Bones: Bones are osteopenic. No lytic lesion is seen. Joints: There is plantar subluxation through the second proximal interphalangeal joint. Soft Tissues: There are vascular calcifications. No evidence of soft tissue air. IMPRESSION: 1. There is subluxation through the second proximal interphalangeal joint. 2. No evidence of focal bony lesion or fracture. 3. There are vascular calcifications. RADIA
[2018-10-12] MEDS ORDERED: SULFAMETH/TRIMETH DS 800/160 MG TABLET PO STA (21:52)
[2018-10-12] MEDS ORDERED: SILVER SULFADIAZINE CREAM 25 GM TUBE TOP STA ×2 (21:53→21:58)
--- NOTE | 2018-10-12 21:55 | ED Physician Documentation ---
History of Present Illness - Stated complaint Stated Complaint: L FOOT/TOE PX - Chief complaint Chief Complaint: Ext Problem - Additonal information Additional information: 63-year-old female presents the emergency department with a chronic second left toe ulcer which is worse over the past several days. The patient is scheduled to have a vascular surgery procedure to help increase flow distally to improve the healing process. The wound today is slightly more swollen and increased drainage. The patient denies fevers or redness. Symptoms are described as moderate. No other associated symptoms Review of Systems Constitutional: denies: Fever, Chills Eyes: denies: Discharge Ears: denies: Ear pain Nose: denies: Congestion Cardiac: denies: Chest pain / pressure Respiratory: denies: Cough GI: denies: Vomiting Skin: reports: Other (Chronic ulceration) Musculoskeletal: reports: Extremity pain Neurologic: denies: Generalized weakness PD PAST MEDICAL HISTORY - Past Medical History Cardiovascular: Congestive heart failure, Hypertension, High cholesterol, Coronary artery disease, Atrial fibrillation Respiratory: Other Endocrine/Autoimmune: Type 2 diabetes GI: Chronic constipation 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 HEENT: Glaucoma Psych: Depression Musculoskeletal: Osteoarthritis, Gout - Past Surgical History Past Surgical History: Yes /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: Other Cardiovascular: Valve replacement, Pacemaker Neuro: Other - Present Medications Home Medications: Ambulatory Orders Medication Instructions Recorded Confirmed Allopurinol 1 tab PO DAILY 09/09/17 09/09/17 Bumetanide 3 tab PO BID 09/09/17 09/09/17 Carvedilol 1 tab PO DAILY 09/09/17 09/09/17 Cholecalciferol (Vitamin D3) 1 tab PO DAILY 09/09/17 09/09/17 [Vitamin D3] Glucagon,Human Recombinant 1 mg PO PRN PRN 09/09/17 12/22/17 [Glucagon Emergency Kit] Isosorbide Mononitrate [Isosorbide 1 tab PO DAILY 09/09/17 09/09/17 Mononitrate ER] Polyethylene Glycol 3350 [Miralax] 1 tab PO DAILY 09/09/17 09/09/17 Senna [Senokot] 2 tab PO DAILY 09/09/17 09/09/17 Simethicone [Gas Relief] 2 tab PO DAILY 09/09/17 09/09/17 levETIRAcetam [Levetiracetam] 1 tab PO DAILY 09/09/17 09/09/17 oxyCODONE [Roxicodone] 1 tab PO Q4H 09/09/17 09/09/17 Gabapentin 300 mg PO ONCE #7 capsule 09/21/17 Acetaminophen/Cod 300/30 [Tylenol 1 tab PO PRN PRN 12/22/17 12/22/17 #3] Cadexomer Iodine 0.9 TOP DAILY 12/22/17 Collagenase Clostridium Hist. 1 applic TOP DAILY 12/22/17 [Santyl] HYDROcod/ACETAM 5/325 [[place] 5/325] 1 - 2 tab PO PRN PRN 12/22/17 Lanthanum Carbonate 500 mg PO TID 12/22/17 oxyCODONE [Roxicodone] 30 mg PO BID 12/22/17 Amoxicillin 500 mg PO TID #15 capsule 12/23/17 Cephalexin [Keflex] 500 mg PO Q6H #12 capsule 01/20/18 cephALEXin [Cephalexin] 250 mg PO QID #12 tablet 03/02/18 Amox/Clav 500/125 [Augmentin] 1 each PO DAILY #10 tablet 10/12/18 Silver Sulfadiazine [Silvadene] 1,000 gm TP BID 10 Days #1 10/12/18 cream..g. Sulfamethox/Trimeth 800/160 1 each PO DAILY #10 tablet 10/12/18 [Bactrim Ds 800/160] - Allergies Allergies/Adverse Reactions: Allergies Allergy/AdvReac Type Severity Reaction Status Date / Time amiodarone Allergy Edema Verified 01/20/18 20:09 amlodipine Allergy Edema Verified 01/20/18 20:09 atenolol Allergy Edema Verified 01/20/18 20:09 - Social History Does the pt smoke?: No Smoking Status: Never smoker Does the pt drink ETOH?: No Does the pt have substance abuse?: No - Immunizations Immunizations are current?: Yes - POLST Patient has POLST: No POLST Status: Full Code PD ED PE NORMAL - General General: Alert and oriented X 3, No acute distress - HEENT HEENT: Atraumatic, PERRL, EOMI, Ears normal - Cardiac Cardiac: RRR, Strong equal pulses - Respiratory Respiratory: No respiratory distress - Derm Derm: Other (Ulcerated second toe on the dorsal side with drainage and swelling) - Neuro Neuro: Alert and oriented X 3, Normal speech - Psych Psych: Normal mood PD ED PE EXPANDED - Extremities ALBERT LE visual: 1 - tenderness (The patient has a deep ulcer with surrounding swelling and mild erythema. There is no significant malodorous changes. There is no significant signs of cellulitis. No palpable abscess. There is a palpable dorsalis pedis pulse) Results - Vitals Vitals: Vital Signs - 24 hr 10/12/18 10/12/18 19:39 21:04 Temperature 36.7 C Heart Rate 99 Respiratory 20 18 Rate Blood Pressure 91/54 L O2 Saturation 98 Oxygen O2 Source Room air - Labs Labs: Laboratory Tests 10/12/18 10/12/18 10/12/18 20:38 20:38 20:38 WBC 13.1 H RBC 3.01 L Hgb 9.8 L Hct 30.7 L MCV 101.7 H MCH 32.6 H MCHC 32.1 RDW 16.8 H Plt Count 169 MPV 9.4 Neut # (Auto) 11.1 H Lymph # (Auto) 0.6 L [place] # (Auto) 1.1 H Eos # (Auto) 0.1 Baso # (Auto) 0.1 Absolute Nucleated RBC 0.00 Nucleated RBC % 0.0 Sodium 134 L Potassium 4.2 Chloride 94 L Carbon Dioxide 25 Anion Gap 15.0 H BUN 46 H Creatinine 4.6 H Estimated GFR (MDRD) 12 L Glucose 227 H Lactic Acid 1.8 Calcium 8.5 Total Bilirubin 1.7 H AST 25 ALT 22 Alkaline Phosphatase 168 H Total Protein 7.4 Albumin 3.1 L Globulin 4.3 H Albumin/Globulin Ratio 0.7 L Lipase 33 - Rads (name of study) XR foot Radiology: Final report received, See rad report (1. There is subluxation through the second proximal interphalangeal joint. 2. No evidence of focal bony lesion or fracture. 3. There are vascular calcifications. ) PD MEDICAL DECISION MAKING - ED course ED course: The patient has no evidence of cellulitis, there does appear to be a secondary acute infection associated with the chronic ulceration. The x-ray shows no evidence of osteomyelitis or necrotizing fasciitis. I discussed the findings with the patient and she would prefer a trial of outpatient management. The p atgenia was put on Augmentin and Bactrim both renally dosed, the patient does receive 3 times a week dialysis. The patient will follow up with her primary care, wound care and vascular surgeon this coming week. The patient will return to the emergency department for any worsening or any concerns Departure - Departure Disposition: Home, Self Care Clinical Impression: Diabetic foot infection Condition: Good Follow-Up: FELIPE MARROQUIN MD [Primary Care Provider] - Within 3 Days Prescriptions: Amox/Clav 500/125 [Augmentin] 1 each PO DAILY #10 tablet Silver Sulfadiazine [Silvadene] 1,000 gm TP BID 10 Days #1 cream..g. Sulfamethox/Trimeth 800/160 [Bactrim Ds 800/160] 1 each PO DAILY #10 tablet Comments: Please return to the emergency department for worsening symptoms or any concerns
[2018-10-12 22:16] VITALS: BP 116/72
== END 2018-10-12 22:16 | disposition home or self-care (01) ==
LOC: ED 19:30
DX: E13.621 Other specified diabetes mellitus with foot ulcer (principal); L97.529 Non-pressure chronic ulcer of other part of left foot with unspecified severity; I11.0 Hypertensive heart disease with heart failure; I50.9 Heart failure, unspecified; E78.00 Pure hypercholesterolemia, unspecified; I25.10 Atherosclerotic heart disease of native coronary artery without angina pectoris
CPT/HCPCS: 36415; 73630; 80053; 83605; 83690; 85025; 87040; 96365; 99283; A9270

== ENCOUNTER 2019-05-16 14:02 | Emergency (ER) | payer MEDICARE, OTHER ==
--- NOTE | 2019-05-16 15:17 | ED Physician Documentation ---
PD HPI SKIN - Stated complaint Stated Complaint: LEG WOUND - Chief complaint Chief Complaint: General - History obtained from History obtained from: Patient - History of Present Illness Timing - onset: How many days ago (she had skin tear from her fingernail scratching few days ago. Has been cleaning and bandage, but has some mild redness to it and faint discharge. Her caregiver was sick today, so could not bring her to dialysis today. The dialysis center called her and told her to come get her Potassium level checked to make sure she can wait until rescheduled dialysis session tomorrow. She would like wound checked while she is here.) Timing - duration: Days Timing - details: Abrupt onset (she scratched her leg by accident few days ago, with some swelling since.) Location: LLE (anterior jaime) Quality / character: Discolored (mild redness), Swelling Associated symptoms: No: Fever, N/V/D Recently seen: Clinic (got dialysis 2 days ago as usual. 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 HEENT: Glaucoma Psych: Depression Musculoskeletal: Osteoarthritis, Gout - Past Surgical History Past Surgical History: Yes /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: Other Cardiovascular: Valve replacement, Pacemaker Neuro: Other - Present Medications Home Medications: Ambulatory Orders Medication Instructions Recorded Confirmed Allopurinol 1 tab PO DAILY 09/09/17 09/09/17 Bumetanide 3 tab PO BID 09/09/17 09/09/17 Carvedilol 1 tab PO DAILY 09/09/17 09/09/17 Cholecalciferol (Vitamin D3) 1 tab PO DAILY 09/09/17 09/09/17 [Vitamin D3] Glucagon,Human Recombinant 1 mg PO PRN PRN 09/09/17 12/22/17 [Glucagon Emergency Kit] Isosorbide Mononitrate [Isosorbide 1 tab PO DAILY 09/09/17 09/09/17 Mononitrate ER] Polyethylene Glycol 3350 [Miralax] 1 tab PO DAILY 09/09/17 09/09/17 Senna [Senokot] 2 tab PO DAILY 09/09/17 09/09/17 Simethicone [Gas Relief] 2 tab PO DAILY 09/09/17 09/09/17 levETIRAcetam [Levetiracetam] 1 tab PO DAILY 09/09/17 09/09/17 oxyCODONE [Roxicodone] 1 tab PO Q4H 09/09/17 09/09/17 Gabapentin 300 mg PO ONCE #7 capsule 09/21/17 Acetaminophen/Cod 300/30 [Tylenol 1 tab PO PRN PRN 12/22/17 12/22/17 #3] Cadexomer Iodine 0.9 TOP DAILY 12/22/17 Collagenase Clostridium Hist. 1 applic TOP DAILY 12/22/17 [Santyl] HYDROcod/ACETAM 5/325 [[place] 5/325] 1 - 2 tab PO PRN PRN 12/22/17 Lanthanum Carbonate 500 mg PO TID 12/22/17 oxyCODONE [Roxicodone] 30 mg PO BID 12/22/17 Amoxicillin 500 mg PO TID #15 capsule 12/23/17 Cephalexin [Keflex] 500 mg PO Q6H #12 capsule 01/20/18 cephALEXin [Cephalexin] 250 mg PO QID #12 tablet 03/02/18 Amox/Clav 500/125 [Augmentin] 1 each PO DAILY #10 tablet 10/12/18 Silver Sulfadiazine [Silvadene] 1,000 gm TP BID 10 Days #1 10/12/18 cream..g. Sulfamethox/Trimeth 800/160 1 each PO DAILY #10 tablet 10/12/18 [Bactrim Ds 800/160] Doxycycline Hyclate 100 mg PO BID #14 capsule 05/16/19 Mupirocin 1 applic TP DAILY #15 g 05/16/19 - Allergies Allergies/Adverse Reactions: Allergies Allergy/AdvReac Type Severity Reaction Status Date / Time amiodarone Allergy Edema Verified 01/20/18 20:09 amlodipine Allergy Edema Verified 01/20/18 20:09 atenolol Allergy Edema Verified 01/20/18 20:09 - Social History Does the pt smoke?: No Smoking Status: Never smoker Does the pt drink ETOH?: No Does the pt have substance abuse?: No - Immunizations Immunizations are current?: Yes - POLST Patient has POLST: No POLST Status: Full Code PD ED PE NORMAL - Vitals Vital signs reviewed: Yes - General General: Alert and oriented X 3, No acute distress, Well developed/nourished - Derm Derm: Normal color, Warm and dry - Extremities Extremities: Other (left lower leg anteriorly with superficial laceration, with some redness just at the edges. faint yellow discharge at the top portion. ) - Neuro Neuro: Alert and oriented X 3, No motor deficit Results - Vitals Vitals: Vital Signs - 24 hr 05/16/19 05/16/19 14:27 17:09 Temperature 36.5 C 37 C Heart Rate 74 71 Respiratory 18 17 Rate Blood Pressure 146/65 H 156/81 H O2 Saturation 94 95 Oxygen O2 Source Room air - Labs Labs: Microbiology 05/16/19 15:39 Wound Culture - Preliminary Leg - Left Laboratory Tests 05/16/19 15:03 Sodium 138 Potassium 5.4 H Chloride 93 L Carbon Dioxide 23 Anion Gap 22.0 H BUN 93 H* Creatinine 8.6 H* Estimated GFR (MDRD) 6 L Glucose 133 H Calcium 8.5 PD MEDICAL DECISION MAKING - ED course Complexity details: reviewed results (her potassium is fine, so is okay to get dialysis tomorrow. ), considered differential (leg abrasion with some redness and mild exudate appears c/w superficial infection. ), d/w patient, d/w weight loss sales consultant (talked with Vinh, her Auto Body Technician, who said she is okay to have dialysis tomorrow, with her K of 5.4. Can start Doxycycline for wound, pending culture. ) Departure - Departure Disposition: 01 Home, Self Care Clinical Impression: Leg wound, left Qualifiers: Encounter type: initial encounter Qualified Code(s): S81.802A - Unspecified open wound, left lower leg, initial encounter Chronic renal failure Qualifiers: Chronic kidney disease stage: unspecified stage Qualified Code(s): N18.9 - Chronic kidney disease, unspecified Condition: Stable Record reviewed to determine appropriate education?: Yes Instructions: ED Wound Care Follow-Up: Wild Justice MD [Physician No Access] - Prescriptions: Doxycycline Hyclate 100 mg PO BID #14 capsule Mupirocin 1 applic TP DAILY #15 g Comments: I talked with Dr. Justice who said you are fine for dialysis tomorrow. He did urged the dialysis tomorrow and not wait until Monday. Regarding leg wound he concurred with topical antibiotic and oral doxycycline. The culture should result in 2 to 3 days to see if it is growing particular germs otherwise. Otherwise it does look like a superficial infection to it. Continue the wound care of dressing changes with the ointment daily. Follow-up with the wound clinic as planned later this month if is not fully healed by then. Discharge Date/Time: 05/16/19 17:09
[2019-05-16 15:29] LABS: CALCIUM 8.5 mg/dL (8.5-10.3)
[2019-05-16 15:32] LABS: CREATININE 8.6 mg/dL (0.4-1.0)
[2019-05-16] MEDS ORDERED: MUPIROCIN 2% OINT 1 GM TOP STA (15:41)
[2019-05-16] MEDS ORDERED: DOXYCYCLINE 100 MG TABLET PO STA (16:18)
[2019-05-16 17:10] VITALS: BP 156/81
== END 2019-05-16 17:09 | disposition home or self-care (01) ==
LOC: ED 14:02
DX: S81.812A Laceration without foreign body, left lower leg, initial encounter (principal); W45.8XXA Other foreign body or object entering through skin, initial encounter; I12.0 Hypertensive chronic kidney disease with stage 5 chronic kidney disease or end stage renal disease; E11.22 Type 2 diabetes mellitus with diabetic chronic kidney disease; N18.6 End stage renal disease; Z99.2 Dependence on renal dialysis
CPT/HCPCS: 36415; 80048; 87070; 87181; 87205; 93005; 99283; A9270

== ENCOUNTER 2019-06-01 16:52 | Emergency (ER) | payer MEDICARE, OTHER ==
--- NOTE | 2019-06-01 17:09 | ED Physician Documentation ---
History of Present Illness - Stated complaint Stated Complaint: WEAKNESS/TIRED - Chief complaint Chief Complaint: Neuro - History obtained from History obtained from: Patient - History of Present Illness Timing: How many weeks ago (1) - Additonal information Additional information: This is a 64-year-old woman has been tired and weak with nausea and vomiting for about a week now been feeling more irregular heartbeats than normal and have her blood hemoglobin tested 2 days ago at dialysis she discussed the results today and her hemoglobin was down to 6.9 so they sent her here for transfusion. She tells me she is had anemia since "she was a kid" she is had transfusions in the past most recent one being when she had a stroke 2 years ago. She is been feeli ng dizzy whenever she looks at bright lights. 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 She denies chest pain but she is been feeling short of breath with the weakness. She denies abdominal pain, diarrhea or fever. They did dialyze her today. She has not noted any blood in her stool. She does have a wound on the front of her left leg from scratching that has gotten significantly deeper and is painful. They have scheduled her to see a vascular surgeon. She receives most of her care in [place] or at [facility]. She does not use insulin and does not monitor her blood sugars at home. Review of Systems Constitutional: denies: Fever Cardiac: reports: Palpitations. denies: Chest pain / pressure Respiratory: reports: Dyspnea GI: reports: Nausea, Vomiting. denies: Abdominal Pain, Diarrhea : reports: Other (Patient receives dialysis 3 times a week) Skin: reports: Lesions (Left anterior jaime) Musculoskeletal: reports: Other (Status post amputation of the left toes) Neurologic: reports: Generalized weakness, Numbness (Diabetic neuropathy). denies: Syncope PD PAST MEDICAL HISTORY - Past Medical History Cardiovascular: Congestive heart failure, Hypertension, High cholesterol, Coronary artery disease, Atrial fibrillation Respiratory: Other Endocrine/Autoimmune: Type 2 diabetes GI: Chronic constipation ADMISSIONS REPRESENTATIVE: Other : Dialysis, Other HEENT: Glaucoma Psych: Depression Musculoskeletal: Osteoarthritis, Gout - Past Surgical History Past Surgical History: Yes /ADMISSIONS REPRESENTATIVE: Other Cardiovascular: Valve replacement, Pacemaker Neuro: Other - Present Medications Home Medications: Ambulatory Orders Medication Instructions Recorded Confirmed Allopurinol 1 tab PO DAILY 09/09/17 09/09/17 Bumetanide 3 tab PO BID 09/09/17 09/09/17 Carvedilol 1 tab PO DAILY 09/09/17 09/09/17 Cholecalciferol (Vitamin D3) 1 tab PO DAILY 09/09/17 09/09/17 [Vitamin D3] Glucagon,Human Recombinant 1 mg PO PRN PRN 09/09/17 12/22/17 [Glucagon Emergency Kit] Isosorbide Mononitrate [Isosorbide 1 tab PO DAILY 09/09/17 09/09/17 Mononitrate ER] Polyethylene Glycol 3350 [Miralax] 1 tab PO DAILY 09/09/17 09/09/17 Senna [Senokot] 2 tab PO DAILY 09/09/17 09/09/17 Simethicone [Gas Relief] 2 tab PO DAILY 09/09/17 09/09/17 levETIRAcetam [Levetiracetam] 1 tab PO DAILY 09/09/17 09/09/17 oxyCODONE [Roxicodone] 1 tab PO Q4H 09/09/17 09/09/17 Gabapentin 300 mg PO ONCE #7 capsule 09/21/17 Acetaminophen/Cod 300/30 [Tylenol 1 tab PO PRN PRN 12/22/17 12/22/17 #3] Cadexomer Iodine 0.9 TOP DAILY 12/22/17 Collagenase Clostridium Hist. 1 applic TOP DAILY 12/22/17 [Santyl] HYDROcod/ACETAM 5/325 [[place] 5/325] 1 - 2 tab PO PRN PRN 12/22/17 Lanthanum Carbonate 500 mg PO TID 12/22/17 oxyCODONE [Roxicodone] 30 mg PO BID 12/22/17 Amoxicillin 500 mg PO TID #15 capsule 12/23/17 Cephalexin [Keflex] 500 mg PO Q6H #12 capsule 01/20/18 cephALEXin [Cephalexin] 250 mg PO QID #12 tablet 03/02/18 Amox/Clav 500/125 [Augmentin] 1 each PO DAILY #10 tablet 10/12/18 Silver Sulfadiazine [Silvadene] 1,000 gm TP BID 10 Days #1 03/08/19 cream..g. Sulfamethox/Trimeth 800/160 1 each PO DAILY #10 tablet 10/12/18 [Bactrim Ds 800/160] Doxycycline Hyclate 100 mg PO BID #14 capsule 05/16/19 Mupirocin 1 applic TP DAILY #15 g 05/16/19 - Allergies Allergies/Adverse Reactions: Allergies Allergy/AdvReac Type Severity Reaction Status Date / Time amiodarone Allergy Edema Verified 06/01/19 17:01 amlodipine Allergy Edema Verified 06/01/19 17:01 atenolol Allergy Edema Verified 06/01/19 17:01 - Social History Does the pt smoke?: No Smoking Status: Never smoker Does the pt drink ETOH?: No Does the pt have substance abuse?: No - Immunizations Immunizations are current?: Yes - POLST Patient has POLST: No POLST Status: Full Code PD ED PE NORMAL - Vitals Vital signs reviewed: Yes - General General: Alert and oriented X 3, No acute distress, Well developed/nourished - HEENT HEENT: Atraumatic, Other (Mucous membranes are dry) - Neck Neck: No JVD - Cardiac Cardiac: No murmur, Other (Irregular rhythm). No: Strong equal pulses (I was able to Doppler posterior tibial pulses bilaterally but not dorsalis pedis.) - Respiratory Respiratory: No respiratory distress, Clear bilaterally - Abdomen Abdomen: Soft, Non tender, No organomegaly - Derm Derm: Normal color, Other (There is a wound on her left anterior lower leg that is covered with a scab that measures approximately8 cm x 4 cm. Its exquisitely is tender surrounding this but without significant edema or erythema. There is no purulent drainage around the edges of the scab.) - Extremities Extremities: No edema - Neuro Neuro: Alert and oriented X 3, Normal speech, Other (Neuropathy with diminished sensation in both of her lower extremities) Results - Vitals Vitals: Vital Signs - 24 hr 06/01/19 06/01/19 06/01/19 17:02 18:04 18:51 Temperature 37 C Heart Rate 74 74 74 Respiratory 15 16 14 Rate Blood Pressure 103/64 110/52 L 119/66 O2 Saturation 95 98 99 06/01/19 06/01/19 06/01/19 19:00 19:10 19:32 Temperature 36.7 C Heart Rate 72 67 66 Respiratory 16 16 12 Rate Blood Pressure 110/63 110/63 110/63 O2 Saturation 96 97 97 06/01/19 06/01/19 06/01/19 20:22 20:30 21:03 Temperature 36.9 C Heart Rate 64 63 71 Respiratory 16 14 12 Rate Blood Pressure 131/78 H 121/64 113/64 O2 Saturation 99 100 98 06/01/19 06/01/19 06/01/19 21:30 22:17 22:29 Temperature 36.8 C Heart Rate 64 67 65 Respiratory 13 14 15 Rate Blood Pressure 119/60 115/62 115/62 O2 Saturation 96 97 98 Oxygen O2 Source Room air - EKG (time done) 1813 Rate: Rate (enter#) (66) Rhythm: Atrial fibrillation Intervals: Other (Narrow QRS.) Ischemia: Normal ST segments, T wave inversion (Leads I 2, aVL and V5 and V6.) 2212 Rate: Rate (enter#) (66) Rhythm: Atrial fibrillation, Paced Ischemia: T wave inversion (1, 2, aVL and V5 and V6.) Compare to prior EKG: Changed from prior EKG (Pacer spikes are now evident.) - Labs Labs: Laboratory Tests 06/01/19 06/01/19 06/01/19 19:09 19:10 19:10 WBC 10.5 RBC 2.15 L Hgb 7.1 L Hct 23.1 L MCV 107.4 H MCH 33.0 H MCHC 30.7 L RDW 19.9 H Plt Count 280 MPV 10.8 Neut # (Auto) 8.3 H Lymph # (Auto) 0.9 L [place] # (Auto) 0.9 Eos # (Auto) 0.2 Baso # (Auto) 0.1 Absolute Nucleated RBC 0.11 Nucleated RBC % 1.0 PT 13.0 H INR 1.2 Sodium Potassium Chloride Carbon Dioxide Anion Gap BUN Creatinine Estimated GFR (MDRD) Glucose Calcium Total Bilirubin AST ALT Alkaline Phosphatase Troponin I High Sens Total Protein Albumin Globulin Albumin/Globulin Ratio Lipase Blood Type A POSITIVE Blood Type Recheck Antibody Screen NEGATIVE Crossmatch IS Only See Detail 06/01/19 06/01/19 06/01/19 19:10 19:10 21:00 WBC RBC Hgb Hct MCV MCH MCHC RDW Plt Count MPV Neut # (Auto) Lymph # (Auto) [place] # (Auto) Eos # (Auto) Baso # (Auto) Absolute Nucleated RBC Nucleated RBC % PT INR Sodium 136 Potassium 3.8 Chloride 94 L Carbon Dioxide 26 Anion Gap 16.0 H BUN 36 H Creatinine 4.2 H Estimated GFR (MDRD) 13 L Glucose 198 H Calcium 8.1 L Total Bilirubin 1.4 H AST 38 ALT 25 Alkaline Phosphatase 127 H Troponin I High Sens 118.3 H* Total Protein 7.5 Albumin 3.4 Globulin 4.1 Albumin/Globulin Ratio 0.8 L Lipase 63 H Blood Type Blood Type Recheck A POSITIVE Antibody Screen Crossmatch IS Only - Rads (name of study) CXR Radiology: EMP read contemporaneously (Cardiomegaly. Lung nathan are clear.), See rad report PD MEDICAL DECISION MAKING - ED course Complexity details: reviewed old records, reviewed results, re-evaluated patient, d/w patient, d/w family ED course: Patient's hemoglobin is 7.1. There was difficulty establishing an IV so anesthesia came put in a right internal jugular central line. BUN and creatinine are elevated but a normal potassium. The patient has a high- sensitivity troponin of 118. EKG initially showed A. fib. I talked with the biodiesel technology manager at [facility] where she receives her care and after lengthy discussion the decision was made to transfer her there. They recommended no treatment with aspirin or heparin at this time thinking that this is more of a flow mismatch related to the anemia than true acute coronary syndrome. Discussion was held with the patient in regards to transfer and she has reluctantly agreed that that would be the best decision at this time. Departure - Departure Disposition: 02 Transfer Acute Care Hosp Clinical Impression: Elevated troponin Anemia Qualifiers: Anemia type: unspecified type Qualified Code(s): D64.9 - Anemia, unspecified Renal failure Qualifiers: Renal failure chronicity: chronic Chronic kidney disease stage: on chronic dialysis Qualified Code(s): N18.6 - End stage renal disease; Z99.2 - Dependence on renal dialysis
--- NOTE | 2019-06-01 18:07 | XRAY Report ---
Reason: Chest Pain Procedure Date: 06/01/2019 Accession Number: [id number] / [id number] Procedure: XR - Chest 1 View X-Ray CPT Code: 47484 FULL RESULT: EXAM: CHEST RADIOGRAPHY EXAM DATE: 06/01/2019 05:38 PM. CLINICAL HISTORY: Chest Pain. COMPARISON: CHEST 2 VIEW 05/14/2018 1:45 PM. TECHNIQUE: 1 view. FINDINGS: Lungs/Pleura: No focal opacities evident. No pleural effusion. No pneumothorax. Mediastinum: Stable cardiomegaly and pacemaker. No acute findings are seen. IMPRESSION: Stable cardiomegaly and pacemaker. No acute findings are seen. RADIA
[2019-06-01 19:18] LABS: BASOPHILS # (AUTO) 0.1 10^3/uL (0.0-0.1); EOSINOPHILS # (AUTO) 0.2 10^3/uL (0.0-0.7); EOSINOPHILS % (AUTO) 1.8 %; HGB - HEMOGLOBIN 7.1 g/dL (12.0-16.0); LYMPHOCYTES # (AUTO) 0.9 10^3/uL (1.5-3.5); LYMPHOCYTES % (AUTO) 8.7 %; MEAN CORPUSCULAR HGB CONC 30.7 g/dL (32.0-36.0); MEAN CORPUSCULAR VOLUME 107.4 fL (81.0-99.0); MEAN PLATELET VOLUME 10.8 fL (7.9-10.8); MONOCYTES # (AUTO) 0.9 10^3/uL (0.0-1.0); MONOCYTES % (AUTO) 8.7 %; NEUTROPHILS # (AUTO) 8.3 10^3/uL (1.5-6.6); NEUTROPHILS % (AUTO) 78.8 %; PLT - PLATELET COUNT 280 10^3/uL (130-450); RED BLOOD COUNT 2.15 10^6/uL (4.20-5.40); RED CELL DISTRIBUTION WIDTH 19.9 % (12.0-15.0); WHITE BLOOD COUNT 10.5 x10^3/uL (4.8-10.8)
[2019-06-01 19:22] LABS: INR 1.2 (0.8-1.2)
[2019-06-01 19:54] LABS: ALBUMIN 3.4 g/dL (3.2-5.5); ALBUMIN/GLOBULIN RATIO 0.8 (1.0-2.2); BILIRUBIN,TOTAL 1.4 mg/dL (0.2-1.0); CALCIUM 8.1 mg/dL (8.5-10.3); CREATININE 4.2 mg/dL (0.4-1.0); TOTAL PROTEIN 7.5 g/dL (6.7-8.2)
--- NOTE | 2019-06-01 20:31 | ANESTHESIA PROCEDURE NOTE ---
Anesth Central Line Template - Central Line Central Line Preparation: Consent Obtained, Time out completed, Ultrasound used, Sterile prep and drape Central line location: Right IJ Central line type: Triple lumen Central line catheter tip site resides: Superior vena cava (SVC) (cavoatrial junction) Central line aftercare: Chlorhexidine disc placed, Secured, Placement confirmed, No complications, Pt tolerated well Other Info/Details: After consent obtained, the patient's right neck was prepped with chlorohexadine. Full sterile drape, gown, gloves, mask utilized. Right IJ was identified under ultrasound and local anesthesia was injected at insertion site. Using modified seldinger technique with ultrasound guidance, the Right IJ was accessed. Wire was advanced with ease. After dilating vessel, a 20cm triple lumen catheter was advanced over the wire. The wire was removed and all 3 ports aspirated blood and were flushed. The line was sutured in place at 16cm at the skin. Biopatch and opsite applied. Chest xray showed tip in the cavoatrial junction. Patient tolerated the procedure well.
--- NOTE | 2019-06-01 20:35 | XRAY Report ---
Reason: central line placement Procedure Date: 06/01/2019 Accession Number: [id number] / [id number] Procedure: XR - Chest for Line Placement CPT Code: FULL RESULT: EXAM: CHEST RADIOGRAPHY EXAM DATE: 06/01/2019 08:09 PM. CLINICAL HISTORY: Central line placement. COMPARISON: CHEST 1 VIEW 06/01/2019 5:38 PM. TECHNIQUE: 1 view. FINDINGS: Lines: -- Right sided central line terminates at the mid to lower SVC level. -- Left sided cardiac implant is in place with leads projecting over right atrium and right ventricular apex, similar to prior. LUNGS: The lungs are clear. PLEURA: No significant pleural effusion. No clinically significant pneumothorax. MEDIASTINUM: Median sternotomy wires and surgical clips are present consistent with CABG. Cardiomegaly, similar to prior. The aorta is calcified and tortuous. BONES: No suspicious osseous lesions. IMPRESSION: 1. No acute cardiopulmonary abnormality. 2. Right sided central line terminates at the mid to lower SVC level. RADIA
[2019-06-01 23:36] VITALS: BP 116/73
== END 2019-06-01 23:56 | disposition short-term general hospital (02) ==
LOC: ED 16:52
DX: D64.9 Anemia, unspecified (principal); R74.8 Abnormal levels of other serum enzymes; I13.2 Hypertensive heart and chronic kidney disease with heart failure and with stage 5 chronic kidney disease, or end stage renal disease; E11.22 Type 2 diabetes mellitus with diabetic chronic kidney disease; N18.6 End stage renal disease; I50.9 Heart failure, unspecified; Z99.2 Dependence on renal dialysis; Z79.84 Long term (current) use of oral hypoglycemic drugs; E11.42 Type 2 diabetes mellitus with diabetic polyneuropathy; I48.91 Unspecified atrial fibrillation; Z95.0 Presence of cardiac pacemaker; Z89.422 Acquired absence of other left toe(s); I69.369 Other paralytic syndrome following cerebral infarction affecting unspecified side
CPT/HCPCS: 36415; 36430; 71045; 80053; 83690; 84484; 85025; 85610; 86850; 86900; 86901; 86920; 93005; 99284; 99285; P9016

== ENCOUNTER 2019-06-01 23:58 | Outpatient (CLI) | payer MEDICARE, OTHER | END 2019-06-01 23:59 | disposition short-term general hospital (02) | LOC: EMS 23:58 | PROVIDERS: ATTEND Surgery | DX: D64.9 Anemia, unspecified (principal); R79.89 Other specified abnormal findings of blood chemistry | CPT/HCPCS: A0425; A0426 ==

== ENCOUNTER 2019-07-25 09:14 | Outpatient (CLI) | payer MEDICARE, OTHER | END 2019-07-25 09:15 | disposition short-term general hospital (02) | LOC: EMS 09:14 | PROVIDERS: ATTEND Surgery | DX: R53.1 Weakness (principal) | CPT/HCPCS: A0425; A0427 ==